=== PATIENT | male | born 1950 | race Caucasian/White ===

== ENCOUNTER 2019-03-19 10:30 | Outpatient (RCR) | payer MEDICARE, MEDICAID, SELFPAY | END 2019-03-30 00:01 | LOC: WOUND 10:30 | PROVIDERS: Family Provider Internal Medicine; Visit Provider Nurse Practitioner Family | DX: L89.623 Pressure ulcer of left heel, stage 3 (principal) ==

== ENCOUNTER 2019-04-03 20:32 | Emergency (ER) | payer MEDICARE, MEDICAID, SELFPAY | END 2019-04-04 00:30 | disposition admitted as inpatient to this hospital (09) | LOC: ER 06-23 13:15 | PROVIDERS: Emergency Provider Family Medicine; PCP Family Medicine | DX: T49.6X1A Poisoning by otorhinolaryngological drugs and preparations, accidental (unintentional), initial encounter (principal); Y92.129 Unspecified place in nursing home as the place of occurrence of the external cause; R41.82 Altered mental status, unspecified; F17.200 Nicotine dependence, unspecified, uncomplicated; I10 Essential (primary) hypertension; F03.90 Unspecified dementia, unspecified severity, without behavioral disturbance, psychotic disturbance, mood disturbance, and anxiety; E66.01 Morbid (severe) obesity due to excess calories; K21.9 Gastro-esophageal reflux disease without esophagitis; E03.9 Hypothyroidism, unspecified; F32.9 Major depressive disorder, single episode, unspecified | CPT/HCPCS: 36600; 71045; 80053; 80307; 82803; 83605; 83930; 84443; 85025; 85610; 96365; 96366; 96375; 99281; 99291; J2704; J3010; J7030 ==

== ENCOUNTER 2019-04-03 20:32 | Inpatient (IN) | payer MEDICAID, SELFPAY ==
--- NOTE | 2019-04-03 20:38 | ED_ITS ---
Entered by Madai Bowen, acting as scribe for Victor Hugo Hernandez DO HPI - Altered Mental Status General: Chief Complaint: Altered Mental Status Stated Complaint: ALTERED LOC/ DRANK A BOTTLE OF MOUTH WASH Time Seen by Provider: 04/03/19 20:34 Source: EMS Mode of arrival: EMS Limitations: altered mental status History of Present Illness: HPI narrative: 69 yo Male presents to ED with complaint of altered mental status. Per EMS, patient [facility] a bottle [facility] mouth wash at the [facility]. MD complaint: altered mental status and intoxication Onset (ago): unknown Context: alcohol abuse Associated symptoms: Reports no associated symptoms Review of Systems General: Reports: 10 or more systems reviewed and unremarkable except in HPI and below Neuro: Reports: confusion and slurred speech PFSH ED PFSH: Statuses (acute, chronic, etc) shown below reflect problem list status as previously entered and may not be historically accurate Social History Smoking and tobacco status: light tobacco smoker Physical Exam Const: COMMON NORMALS: no apparent distress, average body habitus, oriented x3, no limitations, healthy appearing, alert and well nourished HENMT: COMMON NORMALS: normocephalic, head/scalp atraumatic, hearing grossly normal bilaterally, external ears normal, EAC's normal, TM's normal bilaterally, external nose normal, nasal mucous membranes and turbinates normal, moist oral mucous membranes, oropharynx normal, dentition normal and gingiva normal HEAD & SCALP: normocephalic and atraumatic NOSE: external nose normal and nasal mucous membranes and turbinates normal EXTERNAL EAR: Yes external ears normal EXTERNAL AUDITORY CANAL: EAC's normal TYMPANIC MEMBRANE: TM's normal bilaterally Eye: COMMON NORMALS: PERRL, EOMs intact bilaterally, conjunctivae normal, no scleral icterus, no papilledema, normal visual salazar by confrontation and fundi normal bilaterally CONJUNCTIVA: Yes conjunctivae normal PUPIL: Yes PERRL DIRECT OPHTHALMOSCOPY: Yes no papilledema and Yes fundi normal bilaterally Neck/C-Spine: COMMON NORMALS: full ROM, no lymphadenopathy, supple, no meningeal signs, no JVD, thyroid normal and no carotid bruits THYROID: thyroid normal Chest: COMMONS NORMALS: inspection of chest normal and palpation of chest normal Resp: COMMON NORMALS: normal respiratory effort, no retractions, no use of accessory muscles, clear to auscultation bilaterally and percussion normal AUSCULTATION: clear to auscultation bilaterally PERCUSSION: percussion normal Cardio: COMMON NORMALS: no JVD, regular rate, regular rhythm, S1 normal heart sound, S2 normal heart sound, no gallops, no clicks, no murmurs, no rub and peripheral pulses 2+ throughout RATE: regular rate RHYTHM: regular rhythm HEART SOUNDS: S1 normal and S2 normal PERIPHERAL PULSES: pulses 2+ throughout GI: COMMON NORMALS: normal to inspection, nondistended, normoactive bowel sounds, soft to palpation, non-tender, no hepatosplenomegaly, no masses and no bruits PALPATION: Yes soft and Yes no hepatosplenomegaly : COMMON NORMALS: Yes no CVA tenderness BLADDER/KIDNEY EXAM: Yes no CVA tenderness Back/Pelvis: COMMON NORMALS: no CVA tenderness, thoracic and lumbar spine normal to inspection, no thoracic nor lumbar tenderness, thoraco-lumbar ROM normal and straight leg raise negative bilaterally Extremity: COMMON NORMALS: normal to inspection, full ROM, normal capillary refill, no joint enlargement, no clubbing, cyanosis or edema, no calf tenderness and no pedal edema Neuro: COMMON NORMALS: oriented x3 SENSORIUM/ORIENTATION: Yes alert MENINGEAL SIGNS: Yes no meningeal signs Skin: COMMON NORMALS: no rashes or lesions noted, no wounds, skin turgor normal, no jaundice, no petechiae and no mottling GENERAL SKIN EXAM: no rashes or lesions noted and turgor normal Course Vital Signs: Vital signs: Vital Signs Temperature 97.6 F 04/03/19 20:47 Pulse Rate 72 04/03/19 20:47 Respiratory Rate 15 04/03/19 21:30 Blood Pressure 114/64 04/03/19 20:47 Pulse Oximetry 90 04/03/19 20:47 Coding Level of Care Code ED Industrial Relations Worker for Chg Fwd Exam Problem Focused The documentation recorded by the Andrés edgar Carmen, accurately reflects the service I personally performed and the decisions made by , Victor Hugo Hernandez, Apr 03, 2019 20:32
[2019-04-03 20:40] VITALS: BMI 36.3
[2019-04-03 20:47] VITALS: BP 114/64; PULSE 72; RESP 18; TEMP 36.4; O2SAT 90
--- NOTE | 2019-04-03 21:24 | XRR_ITS ---
PROCEDURE INFORMATION: Exam: XR Chest, 1 View Exam date and time: 04/03/2019 9:42 PM Age: 69 years old Clinical indication: Device placement; Ett placement (vent status); Additional info: Post intubation TECHNIQUE: Imaging protocol: XR of the chest Views: 1 view. COMPARISON: No relevant prior studies available. FINDINGS: Tubes, catheters and devices: The endotracheal tube is not visible. The nasogastric tube is positioned in the stomach, well beyond the diaphragmatic hiatus. The tip is not imaged. Lungs: Mild nonspecific opacity at the left lung base most likely represent subsegmental atelectasis. There is a 7 mm nodule projecting over the right lung base. Pleural space: There is no pleural effusion or pneumothorax. Heart/Mediastinum: Cardiomediastinal contours are unremarkable. Bones/joints: Bones are unremarkable. XR/XR chest 1V portable [id number] IMPRESSION: 1. The endotracheal tube is not visible. Consider repeat chest radiograph. 2. NG tube is in the stomach. The tip is not imaged. 3. Right lower lobe 7 mm pulmonary nodule. Recommend nonemergent chest CT followup. 4. Probable atelectasis in the left lung base.
[2019-04-03 21:30] VITALS: RESP 15
[2019-04-03] MEDS: sodium chloride 0.9% 1,000 ML 999 ML IV (21:30)
[2019-04-03] MEDS: propofol 1,000 MG/100 ML INJ 4 MG IV (21:35)
[2019-04-03] MEDS: fentaNYL 50 mcg/mL INJ 2mL 200 MCG XX (21:55)
[2019-04-03 22:08] LABS: ABG PCO2 64.3 mmHg (35-45); ABG PH Result 7.25 (7.35-7.45)
[2019-04-03 22:09] LABS: Base Excess ABG -0.5 mmol/L (-2.0-2.0); Blood Gas Allen Test P; HCO3 ABG 28.4 mmol/L (22-26); Oxygen Device VENT
[2019-04-03 22:17] LABS: Basophils # 0.1 10^3/uL (0.0-0.1); Basophils % 1.3 %; Eosinophils # 0.1 10^3/uL (0.0-0.8); Eosinophils % 2.1 %; Hematocrit 45.8 % (42.0-52.0); Hemoglobin 14.9 g/dL (11.7-16.6); Lymphocytes # 2.1 10^3/uL (0.8-4.8); Lymphocytes % 39.8 %; Mean Corpuscular HGB Conc 32.5 g/dL (30.0-36.0); Mean Corpuscular Hemoglobin 31.9 pg (28.0-34.0); Mean Corpuscular Volume 98.1 fL (80-94); Mean Platelet Volume 10.9 fL (7.4-10.4); Monocytes # 0.4 10^3/uL (0.2-0.9); Monocytes % 8.2 %; Neutrophils # 2.5 10^3/uL (1.8-7.7); Neutrophils % 46.7 %; Nucleated Red Blood Cells % 0 %; Platelet Count 262 10^3/cmm (130-400); Red Blood Count 4.67 10^6/uL (4.1-5.3); White Blood Count 5.4 10^3/uL (4.0-10.0)
[2019-04-03 22:28] LABS: INR 1.03 (0.8-1.2)
[2019-04-03 22:46] VITALS: PULSE 80; RESP 15; TEMP 36.6; O2SAT 95
[2019-04-03 22:49] LABS: Alanine Aminotransferase 39 U/L (0-41); Albumin Level 4.2 g/dL (3.5-5.2); Alcohol Level 150 mg/dL (0-10); Alkaline Phosphatase 107 IU/L (40-130); Anion Gap 17.2 (5-19); Aspartate Amino Transferase 31 U/L (0-40); Blood Urea Nitrogen 15 mg/dL (8-23); Calcium 8.6 mg/Dl (8.8-10.2); Carbon Dioxide 26 mmol/L (22-29); Chloride 94 mmol/L (98-107); Globulin 2.5 g/dL (1.3-4.6); Glucose 98 mg/dL (74-106); Potassium 4.2 mmol/L (3.5-5.1); Sodium 133 mmol/L (136-145); Thyroid Stimulating Hormone 1.19 uIU/mL (0.27-4.20); Total Bilirubin 0.3 mg/dL (0.15-1.2); Total Protein 6.7 g/dL (6.6-8.7)
[2019-04-03 22:55] LABS: Acetaminophen < 5.0 ug/mL (10-30); Salicylate < 0.3 mg/dL (3-10)
[2019-04-04] VITALS (34 sets, daily range): BP systolic 89–162; BP diastolic 56–86; PULSE 63–110; RESP 15–23; TEMP 36.3–37.7; O2SAT 40–98
--- NOTE | 2019-04-04 00:38 | P.HP_ITS ---
Providers/Chief Complaint Admitting Physician: Hemal Mcclelland MD Primary Care Provider: Deloris Echavarria DO Chief Complaint: ALTERED LOC/ DRANK A BOTTLE OF MOUTH WASH History of Present Illness Zain Resendiz is a 69 year old male who is a resident of a half-way from [facility], was brought in by EMS for severe agitation and altered mental status. Patient was intubated by ER physician because of his inability to protect his airways, I was told that he was very agitated, was not making any sense, was intubated by Dr. Khan on first attempt. I called his half-way who told me that for last 2 to 3 days he was refusing nursing care, he does not ambulate on his own he needs a wheelchair or a Kamron lift, he has been very combative for last few days, he has been cursing nurses and the staff there. Today when he was sent back to his room 3 bottles of Listerine were found in his room and he was very confused at that time. He has a stage III left heel ulcer and a healed coccygeal ulcer, he has been seen by wound care nurses but recently was refusing wound care as well. Blood gas was obtained on BiPAP which showed respiratory acidosis, tidal volume was increased and PEEP was decreased to 5, FiO2 50% on CMV ventilator, when I evaluated him he was opening his eyes was moving his extremities, soft wrist restraints were used, blood pressure 128/70, propofol is was running at the bedside at 10 Santos catheter was draining concentrated urine Respiratory therapist was able to suction a lot of whitish expectorant Review of Systems General: Reports: ROS unobtainable due to endotracheal tube Medications/Allergies Allergies Allergy/AdvReac Type Severity Reaction Status Date / Time No Allergy Information Allergy Unknown Unknown Unverified 04/03/19 22:41 Available PFSH Acute PFSH: Statuses (acute, chronic, etc) shown below reflect problem list status as previously entered and may not be historically accurate Medical History (Updated 04/04/19 @ 01:02 by Hemal Mcclelland MD) BPH (benign prostatic hyperplasia) (Acute) COPD (chronic obstructive pulmonary disease) (Acute) GERD (gastroesophageal reflux disease) (Acute) Hospital-acquired pneumonia (Acute) Hypertension (Acute) Hyponatremia (Acute) Hypothyroidism (Acute) Morbid obesity (Acute) MRSA (methicillin resistant staph aureus) culture positive (Acute) Neuropathy (Acute) Pressure ulcer with abrasion, blister, partial thickness skin loss involving epidermis and/or dermis (Acute) Radiculopathy (Acute) Spastic paralysis (Acute) Spinal stenosis (Acute) Surgical History (Updated 04/04/19 @ 01:00 by Hemal Mcclelland MD) Surgical history unknown (Acute) Family History (Updated 04/04/19 @ 00:59 by Hemal Mcclelland MD) Other Diabetes Hypertension Social History (Updated 04/04/19 @ 00:59 by Hemal Mcclelland MD) Smoking and tobacco status: light tobacco smoker Alcohol intake: former Substance/Drug Use: never Vitals/I&O/Wt Last Vital Signs Temp 97.6 F 04/03/19 20:47 Pulse 72 04/03/19 20:47 Resp 15 04/03/19 21:30 BP 114/64 04/03/19 20:47 Pulse Ox 90 04/03/19 20:47 Weight last 48 hrs Weight 131.995 kg Physical Exam Narrative: EXAM NARRATIVE: Patient has been intubated with CMV settings FiO2 50% PEEP 5, tidal volume 550, Minute ventilation 8-9 Propofol running at the bedside at 10 Patient is intubated and sedated, Morbidly obese male ET tube size 8 A lot of whitish expectorant has been suctioned Assisted breath sounds bilaterally Abdomen with obesity, soft, distended, bowel sounds present Neurological status not able to be assessed Lower extremity has venous stasis dermatitis with stage II-III left heel ulcer Coccygeal healing ulcer on admission Santos catheter draining concentrated urine Multiple skin purpura petechiae Multiple bruises at his forearm No active signs of heart failure lower extremity pitting edema, Onychomycosis A&P Assessment and plan (1) Respiratory failure: Status: Acute Code(s): J96.90 - Respiratory failure, unspecified, unspecified whether with hypoxia or hypercapnia (2) Morbid obesity: Status: Acute Code(s): E66.01 - Morbid (severe) obesity due to excess calories (3) Adverse effect of mouthwash: Status: Acute Code(s): T49.6X5A - Adverse effect of otorhinolaryngological drugs and preparations, initial encounter (4) Alcoholic intoxication: Status: Acute Qualifiers: Complication of substance-induced condition: with delirium Qualified Code(s): F10.921 - Alcohol use, unspecified with intoxication delirium Code(s): F10.929 - Alcohol use, unspecified with intoxication, unspecified (5) Altered mental status: Status: Acute Qualifiers: Altered mental status type: stupor Qualified Code(s): R40.1 - Stupor Code(s): R41.82 - Altered mental status, unspecified Additional A&P Information Additional A&P Information: Respiratory failure secondary to inability to protect airways because of alcohol intoxication Patient has used Listerine 3 bottles, ethanol level 154 Would use propofol for sedation, he was waking up on propofol running at 10, he was given additional dose of propofol 40, Will get another chest x-ray to locate ETT position and NG Will get another blood gas He might be ready for a weaning trial in the morning Alcohol intoxication Calculated osmolarity is 308 I am waiting on measured serum osmolarity to calculate osmolar gap Patient is not acidotic, no elevation of transaminases, lactic acid normal kidney function is normal I highly doubt he will need hemodialysis on urgent basis for now Hypothyroid: Continue levothyroxine 150 mcg Sleep apnea with concomitant use of opioids and analgesics This might aggravate his respiratory distress in the future and put him at risk of respiratory failure and reintubation Pressure induced injury of left heel and coccygeal area Patient will need nursing wound care Stage III heel ulcer and well-healed coccygeal ulcer Continue Santos catheter for now BPH: Continue tamsulosin GERD: Continue antacids Spasticity: Patient has been on baclofen Gabapentin for neuropathy Depression/anxiety: I would continue his escitalopram and will increase the dose to 40 mg He is also on Depakote Full code Attestations Medical Necessity Statement*: Anticipating his stay to cross more than 2 midnights currently needs ICU for hypercarbic respiratory failure secondary to alcohol intoxication Time Spent in Patient Care: (>than 50% of time spent in counselling and/or direct pt care on unit) . 60 Coding Level of Care Code Acute Aoc Director Combat Operations Officer for Sudarshan Varela Diagnoses Respiratory failure J96.90 Morbid obesity E66.01 Adverse effect of mouthwash T49.6X5A Alcoholic intoxication F10.921 Complication of substance-induced condition: with delirium Altered mental status R40.1 Altered mental status type: stupor
--- NOTE | 2019-04-04 00:54 | PC.NURSE ---
Pt came to ER due to AMS which occured while in NH. Pt was speaking, but not making sense when asked questions. Pt combative at times when trying to place IV.
--- NOTE | 2019-04-04 00:57 | ECG_ITS ---
Measurements Intervals Yoder Rate: 99 P: RI: 224 QRS: 58 QRSD: 73 T: 56 QT: 339 QTc: 436 SINUS RHYTHM WITH FIRST DEGREE AV BLOCK MODERATE ST DEPRESSION [0.05+ mV ST DEPRESSION] No previous ECG available for comparison Electronically Signed On 04-04-2019 11:13:11 USER INTERFACE DESIGNER by Sara Mendoza M.D. [email or web address]
--- NOTE | 2019-04-04 00:57 | XRR_ITS ---
PROCEDURE INFORMATION: Exam: XR Chest, 1 View Exam date and time: 04/04/2019 1:24 AM Age: 69 years old Clinical indication: Dyspnea; Additional info: Et and ng tube TECHNIQUE: Imaging protocol: XR of the chest Views: 1 view. COMPARISON: CR XR chest 1V portable [id number] 04/03/2019 9:27 PM FINDINGS: Tubes, catheters and devices: The endotracheal tube is appropriately positioned in the distal thoracic trachea with the tip above the isabela. The nasogastric tube is positioned in the stomach, well beyond the diaphragmatic hiatus. The tip is not imaged. Lungs: There is no consolidation. Pleural space: Unremarkable. No pleural effusion. No pneumothorax. Heart/Mediastinum: Cardiomediastinal contours are unremarkable. Bones/joints: Bones are unremarkable. XR/XR chest 1V portable [id number] IMPRESSION: 1. Satisfactory endotracheal tube position. 2. NG tube is in the stomach. The tip is not imaged.
[2019-04-04] MEDS: enoxaparin 40 mg/0.4 mL Syringe SUBCUT (01:57)
[2019-04-04] MEDS: atorvastatin 40 mg Tablet PO (01:57)
[2019-04-04 04:49] LABS: ABG PCO2 54.7 mmHg (35-45); ABG PH Result 7.31 (7.35-7.45); Arterial Blood Gas Hematocrit 46.9 % (42-52); Base Excess ABG -0.1 mmol/L (-2.0-2.0); Blood Gas Allen Test Pos; Blood Gas Sample Site Radial, right; Blood Gas Sample Type Arterial; Blood Gas Tidal Volume 0.55; HCO3 ABG 27.4 mmol/L (22-26)
[2019-04-04] MEDS: propofol 1,000 MG/100 ML INJ 11.9 MG IV ×2 (05:20→19:45)
[2019-04-04 05:27] LABS: Basophils # 0.1 10^3/uL (0.0-0.1); Eosinophils # 0.1 10^3/uL (0.0-0.8); Eosinophils % 0.8 %; Hemoglobin 14.8 g/dL (11.7-16.6); Lymphocytes # 1.7 10^3/uL (0.8-4.8); Lymphocytes % 21.6 %; Mean Corpuscular HGB Conc 32.2 g/dL (30.0-36.0); Mean Corpuscular Hemoglobin 31.2 pg (28.0-34.0); Mean Platelet Volume 11.1 fL (7.4-10.4); Monocytes # 0.9 10^3/uL (0.2-0.9); Monocytes % 10.8 %; Neutrophils # 5.2 10^3/uL (1.8-7.7); Neutrophils % 64.7 %; Nucleated Red Blood Cells % 0 %; Platelet Count 274 10^3/cmm (130-400); Red Blood Count 4.74 10^6/uL (4.1-5.3); Red Cell Distribution Width 14.1 % (12.1-15.1)
[2019-04-04 05:30] LABS: Lactic Sepsis W/Reflex 2.8 mmol/L (0.5-2.2)
[2019-04-04 05:40] LABS: Alanine Aminotransferase 35 U/L (0-41); Albumin Level 3.8 g/dL (3.5-5.2); Alkaline Phosphatase 120 IU/L (40-130); Anion Gap 17.5 (5-19); Aspartate Amino Transferase 31 U/L (0-40); Blood Urea Nitrogen 21 mg/dL (8-23); Calcium 9.3 mg/Dl (8.8-10.2); Carbon Dioxide 27 mmol/L (22-29); Chloride 95 mmol/L (98-107); Globulin 3.5 g/dL (1.3-4.6); Glomerular Filtration Rate 112.1 mL/min (90-130); Glucose 85 mg/dL (74-106); Potassium 4.5 mmol/L (3.5-5.1); Sodium 135 mmol/L (136-145); Total Bilirubin 0.2 mg/dL (0.15-1.2); Total Protein 7.3 g/dL (6.6-8.7)
[2019-04-04] MEDS: sodium chloride 0.9% 1,000 ML 75 ML IV ×2 (06:45→19:46)
[2019-04-04 07:02] LABS: Reflex Lactate Order Y
[2019-04-04] MEDS: ipratropium-albuterol 3 mL Neb INHALATION ×3 (07:26→19:40)
--- NOTE | 2019-04-04 07:31 | PC.NURSE ---
lung with increased section large amts whitish sputm noted decreased breath sound at this time
[2019-04-04 08:35] LABS: Lactate (Lactic Acid level) 1.5 mmol/L (0.5-2.2)
[2019-04-04] MEDS: levothyroxine 150 mcg Tablet PO (08:41)
[2019-04-04] MEDS: aspirin 81 mg EC Tablet PO (08:41)
[2019-04-04] MEDS: sennosides-docusate Tablet 1 TAB PO ×2 (08:41→17:12)
[2019-04-04] MEDS: baclofen 10 mg Tablet PO ×2 (08:41→17:12)
[2019-04-04] MEDS: doxazosin 4 mg Tablet 8 MG PO (08:51)
--- NOTE | 2019-04-04 10:10 | CTR_ITS ---
PROCEDURE INFORMATION: Exam: CT Cervical Spine Without Contrast Exam date and time: 04/04/2019 10:40 AM Age: 69 years old Clinical indication: Injury or trauma; Initial encounter; Blunt trauma; Additional info: R/O fracture TECHNIQUE: Imaging protocol: Computed tomography images of the cervical spine without contrast. Total DLP: 933.59 mGy-cm Radiation optimization: All CT scans at this facility use at least one of these dose optimization techniques: automated exposure control; mA and/or kV adjustment per patient size (includes targeted exams where dose is matched to clinical indication); or iterative reconstruction. COMPARISON: No relevant prior studies available. FINDINGS: Tubes, catheters and devices: Endotracheal and orogastric tubes. Vertebrae: No acute bony injury or malalignment in the cervical spine. Exaggerated cervical lordosis. Discs/Spinal canal/Neural foramina: Multilevel degenerative change. Note that assessment of disc, spinal cord, and nerve root pathology is limited in the absence of intrathecal contrast. Soft tissues: Unremarkable. Sinuses: Sphenoid and maxillary sinus fluid. Nasopharynx: Fluid in the nasal cavities and nasopharynx. Lungs: Unremarkable apices as visualized. Vasculature: Vascular calcification. CT/CT cervical spin wo con* [id number] IMPRESSION: No acute bony injury or malalignment in the cervical spine. Radiation Dose CTDIVOL = (mGy): DLP = 933.59 (mGy-cm)
--- NOTE | 2019-04-04 10:10 | CTR_ITS ---
PROCEDURE INFORMATION: Exam: CT Head Without Contrast Exam date and time: 04/04/2019 10:40 AM Age: 69 years old Clinical indication: Altered mental status/memory loss; Additional info: R/O CVA TECHNIQUE: Imaging protocol: Computed tomography of the head without contrast. Total DLP: 1139.49 mGy-cm Radiation optimization: All CT scans at this facility use at least one of these dose optimization techniques: automated exposure control; mA and/or kV adjustment per patient size (includes targeted exams where dose is matched to clinical indication); or iterative reconstruction. COMPARISON: No relevant prior studies available. FINDINGS: Tubes, catheters and devices: Orogastric and endotracheal tubes. Brain: Symmetric prominence of cortical sulci. No acute post traumatic brain injury. Minimal small vessel ischemic change. Ventricles: Normal configuration of the ventricles. Bones/joints: No acute calvarial injury. Bilateral anterior subluxation of the temporomandibular joints and horizontally oriented linear radiolucencies in the mandibular condyles, believed to be artifactual. CT of the temporomandibular joints performed for improved characterization if clinically indicated. Sinuses: Bilateral paranasal sinus fluid. Mastoid air cells: No mastoid effusion. Soft tissues: No significant scalp hematoma. 7 mm cutaneous nodule right frontal region. CT/CT head wo con* [id number] IMPRESSION: 1. No acute post traumatic brain injury. 2. Bilateral anterior subluxation of the temporomandibular joints and horizontally oriented linear radiolucencies in the mandibular condyles, believed to be artifactual. CT of the temporomandibular joints performed for improved characterization if clinically indicated. Radiation Dose CTDIVOL = (mGy): DLP = 1139.49 (mGy-cm)
--- NOTE | 2019-04-04 10:28 | PC.NURSE ---
flu shot 01/08/2019
[2019-04-04] MEDS: propofol 1,000 MG/100 ML INJ 15.8 MG IV ×2 (10:42→14:41)
--- NOTE | 2019-04-04 10:47 | PM.PN ---
Subjective Subjective: Interval history: Overnight H&P labs reviewed. ETT with thick copious secretions. Remains intubated and sedated in the ICU. Poison control contacted this morning. Medications: Reviewed: Yes Vitals/I&O/Wt Last Vital Signs Temp 98.0 F 04/04/19 07:14 Pulse 89 04/04/19 10:00 Resp 16 04/04/19 10:00 BP 106/66 04/04/19 10:00 Pulse Ox 93 04/04/19 10:00 04/03/19 04/04/19 04/04/19 22:59 06:59 14:59 Intake Total 37.868 / 37.868 77.947 / 77.947 Output Total 550 / 550 Balance -512.132 / -512.132 77.947 / 77.947 Weight last 48 hrs Weight 131.995 kg Physical Exam Narrative: EXAM NARRATIVE: General intubated sedated HEENT coarse ET tube secretions CVS S1-S2 is normal Respiratory system bilateral coarse breath sounds Abdomen soft nondistended nontender. Urinary Catheter Management^: Santos: Cath Placed During This Visit: no A&P Assessment and plan (1) Respiratory failure: Status: Acute Code(s): J96.90 - Respiratory failure, unspecified, unspecified whether with hypoxia or hypercapnia (2) Morbid obesity: Status: Acute Code(s): E66.01 - Morbid (severe) obesity due to excess calories (3) Adverse effect of mouthwash: Status: Acute Code(s): T49.6X5A - Adverse effect of otorhinolaryngological drugs and preparations, initial encounter (4) Alcoholic intoxication: Status: Acute Qualifiers: Complication of substance-induced condition: with delirium Qualified Code(s): F10.921 - Alcohol use, unspecified with intoxication delirium Code(s): F10.929 - Alcohol use, unspecified with intoxication, unspecified (5) Altered mental status: Status: Acute Qualifiers: Altered mental status type: stupor Qualified Code(s): R40.1 - Stupor Code(s): R41.82 - Altered mental status, unspecified Additional A&P Information Additional A&P Information: Respiratory failure secondary to inability to protect airways because of alcohol intoxication. Thick copious secretions may be resultant because of aspiration. Patient has used Listerine 3 bottles, ethanol level 154 Continue propofol. Add fentanyl gtt. for pain control Weaning trial tomorrow morning Alcohol intoxication Discussed with poison control. Salicylate level is negative. We will additionally check acetaminophen levels. Hypothyroid: Continue levothyroxine 150 mcg Sleep apnea with concomitant use of opioids and analgesics This might aggravate his respiratory distress in the future and put him at risk of respiratory failure and reintubation Pressure induced injury of left heel and coccygeal area Continue dressings BPH: Continue Flomax GERD: Continue antacids Spasticity: Patient has been on baclofen Gabapentin for neuropathy Full code Attestations Medical Necessity Statement*: Acute alcohol intoxication with respiratory failure requiring intubation. Coding Level of Care Code Acute Making Department Preparer for [facility] Diagnoses Respiratory failure J96.90 Morbid obesity E66.01 Adverse effect of mouthwash T49.6X5A Alcoholic intoxication F10.921 Complication of substance-induced condition: with delirium Altered mental status R40.1 Altered mental status type: stupor
--- NOTE | 2019-04-04 10:53 | XRR_ITS ---
PROCEDURE INFORMATION: Exam: XR Chest, 1 View Exam date and time: 04/04/2019 11:23 AM Age: 69 years old Clinical indication: Shortness of breath; Additional info: Aspiration TECHNIQUE: Imaging protocol: XR of the chest Views: 1 view. COMPARISON: CR XR chest 1V portable [id number] 04/04/2019 1:13 AM FINDINGS: Tubes, catheters and devices: Endotracheal tube terminates 2.5 cm above the isabela. Feeding tube courses into the proximal stomach the distal tip not visualized. Lungs: COPD, interstitial prominence, chronic granulomatous disease. Pleural space: Incomplete visualization of the right costophrenic angle. No significant pleural effusion. Heart/Mediastinum: No cardiomegaly. Bones/joints: Osteopenia and degenerative change. Suspected resection of incompletely visualized distal right clavicle. XR/XR chest 1V [id number] IMPRESSION: 1. Endotracheal tube terminates 2.5 cm above the isabela. Feeding tube courses into the proximal stomach the distal tip not visualized. 2. COPD, interstitial prominence, chronic granulomatous disease.
--- NOTE | 2019-04-04 11:39 | PC.NURSE ---
to ct for head and kneck back to room has increased section noted weeping edema left arm large amt pad changed
--- NOTE | 2019-04-04 14:31 | PC.CHAP ---
The patient is on a vent so the Fixer Supervisor prayed outside o the room. 3 min.
[2019-04-04 16:25] LABS: Basophils # 0.1 10^3/uL (0.0-0.1); Basophils % 0.6 %; Eosinophils % 0.3 %; Hematocrit 45.3 % (42.0-52.0); Hemoglobin 13.9 g/dL (11.7-16.6); Lymphocytes # 1.7 10^3/uL (0.8-4.8); Lymphocytes % 17.5 %; Mean Corpuscular HGB Conc 30.7 g/dL (30.0-36.0); Mean Corpuscular Hemoglobin 31.8 pg (28.0-34.0); Mean Corpuscular Volume 103.7 fL (80-94); Mean Platelet Volume 11.1 fL (7.4-10.4); Monocytes # 1.3 10^3/uL (0.2-0.9); Monocytes % 13.1 %; Neutrophils # 6.7 10^3/uL (1.8-7.7); Neutrophils % 68.1 %; Nucleated Red Blood Cells % 0 %; Platelet Count 228 10^3/cmm (130-400); Red Blood Count 4.37 10^6/uL (4.1-5.3); Red Cell Distribution Width 14.4 % (12.1-15.1); White Blood Count 9.8 10^3/uL (4.0-10.0)
--- NOTE | 2019-04-04 18:18 | PC.NURSE ---
ng intact from admission remains
--- NOTE | 2019-04-04 19:59 | PC.NURSE ---
Left arm swollen and weeping, pad changed. Multiple blisters present on underside of arm. IV discontinued. Arm placed on pillow and absorbent todd.
[2019-04-04] MEDS: finasteride 5 mg Tablet PO (21:54)
[2019-04-04] MEDS: divalproex ER 500 mg Tablet (24H) PO (21:56)
--- NOTE | 2019-04-04 22:58 | PC.NURSE ---
Update given to poison control. No change of care needed at this time.
[2019-04-05] VITALS (24 sets, daily range): BP systolic 87–155; BP diastolic 46–90; PULSE 57–771; RESP 16–21; TEMP 36.8–37.3; O2SAT 59–100
[2019-04-05] MEDS: enoxaparin 40 mg/0.4 mL Syringe SUBCUT ×2 (00:20→23:58)
[2019-04-05] MEDS: ipratropium-albuterol 3 mL Neb INHALATION ×4 (01:44→20:05)
[2019-04-05] MEDS: propofol 1,000 MG/100 ML INJ 31.7 MG IV ×9 (02:42→23:03)
[2019-04-05 05:16] LABS: ABG PCO2 47.4 mmHg (35-45); ABG PH Result 7.41 (7.35-7.45); Base Excess ABG 4.2 mmol/L (-2.0-2.0); Blood Gas Allen Test Pos; Blood Gas Sample Site Radial, right; Blood Gas Sample Type Arterial; Blood Gas Tidal Volume 0.55; HCO3 ABG 29.8 mmol/L (22-26)
[2019-04-05 05:35] LABS: Basophils # 0.1 10^3/uL (0.0-0.1); Basophils % 0.6 %; Eosinophils % 0.2 %; Hematocrit 39.1 % (42.0-52.0); Hemoglobin 12.5 g/dL (11.7-16.6); Lymphocytes # 1.1 10^3/uL (0.8-4.8); Lymphocytes % 13.5 %; Mean Corpuscular Hemoglobin 31.8 pg (28.0-34.0); Mean Corpuscular Volume 99.5 fL (80-94); Mean Platelet Volume 11.3 fL (7.4-10.4); Monocytes % 11.8 %; Neutrophils # 6.2 10^3/uL (1.8-7.7); Neutrophils % 73.4 %; Nucleated Red Blood Cells % 0 %; Platelet Count 224 10^3/cmm (130-400); Red Blood Count 3.93 10^6/uL (4.1-5.3); Red Cell Distribution Width 14.4 % (12.1-15.1); White Blood Count 8.4 10^3/uL (4.0-10.0)
[2019-04-05 06:03] LABS: Alanine Aminotransferase 20 U/L (0-41); Albumin Level 3.2 g/dL (3.5-5.2); Alkaline Phosphatase 99 IU/L (40-130); Anion Gap 13.7 (5-19); Aspartate Amino Transferase 16 U/L (0-40); Blood Urea Nitrogen 20 mg/dL (8-23); Calcium 9.2 mg/Dl (8.8-10.2); Carbon Dioxide 28 mmol/L (22-29); Chloride 98 mmol/L (98-107); Glucose 107 mg/dL (74-106); Potassium 3.7 mmol/L (3.5-5.1); Sodium 136 mmol/L (136-145); Total Bilirubin 0.3 mg/dL (0.15-1.2); Total Protein 6.2 g/dL (6.6-8.7)
[2019-04-05] MEDS: sennosides-docusate Tablet 1 TAB PO ×2 (09:05→18:58)
[2019-04-05] MEDS: aspirin 81 mg EC Tablet PO (09:05)
[2019-04-05] MEDS: buPROPion XL (24 HR) 300 mg Tablet PO (09:05)
[2019-04-05] MEDS: baclofen 10 mg Tablet PO ×2 (09:05→18:58)
[2019-04-05] MEDS: levothyroxine 150 mcg Tablet PO (09:05)
[2019-04-05] MEDS: doxazosin 4 mg Tablet 8 MG PO (09:06)
[2019-04-05] MEDS: sodium chloride 0.9% 1,000 ML 75 ML IV ×2 (09:07→19:09)
--- NOTE | 2019-04-05 09:25 | P.PN_ITS ---
Subjective Subjective: Interval history: Continues to have thick copious secretions. Also noted to have blood-tinged aspirate from his NGT. Sedated with propofol also on fentanyl Medications: Reviewed: Yes Vitals/I&O/Wt Last Vital Signs Temp 99.1 F 04/05/19 04:00 Pulse 771 H 04/05/19 07:25 Resp 16 04/05/19 09:04 BP 105/54 04/05/19 06:00 Pulse Ox 99 04/05/19 07:25 04/04/19 04/05/19 04/05/19 22:59 06:59 14:59 Intake Total 1056.303 / 1198.392 212.463 / 1628.180 6368 / 1100 Output Total 300 / 300 Balance 1056.303 / 1198.392 -87.537 / 6000.346 6133 / 1100 Weight last 48 hrs Weight 131.995 kg Physical Exam Narrative: EXAM NARRATIVE: General intubated sedated HEENT coarse ET tube secretions CVS S1-S2 is normal Respiratory system bilateral coarse breath sounds Abdomen soft nondistended nontender. Urinary Catheter Management^: Santos: Cath Placed During This Visit: no A&P Assessment and plan (1) Respiratory failure: Status: Acute Code(s): J96.90 - Respiratory failure, unspecified, unspecified whether with hypoxia or hypercapnia (2) Morbid obesity: Status: Acute Code(s): E66.01 - Morbid (severe) obesity due to excess calories (3) Adverse effect of mouthwash: Status: Acute Code(s): T49.6X5A - Adverse effect of otorhinolaryngological drugs and preparations, initial encounter (4) Alcoholic intoxication: Status: Acute Qualifiers: Complication of substance-induced condition: with delirium Qualified Code(s): F10.921 - Alcohol use, unspecified with intoxication delirium Code(s): F10.929 - Alcohol use, unspecified with intoxication, unspecified (5) Altered mental status: Status: Acute Qualifiers: Altered mental status type: stupor Qualified Code(s): R40.1 - Stupor Code(s): R41.82 - Altered mental status, unspecified Additional A&P Information Additional A&P Information: Respiratory failure secondary to inability to protect airways because of alcohol intoxication. Thick copious secretions may be resultant because of aspiration. Will obtain chest x-ray Patient has used Listerine 3 bottles, ethanol level 154 Continue propofol. Add fentanyl gtt. for pain control Weaning trial tomorrow morning Alcohol intoxication Discussed with poison control. Salicylate level is negative. Acetaminophen levels reviewed not in the toxic range Hypothyroid: Continue levothyroxine 150 mcg Sleep apnea with concomitant use of opioids and analgesics This might aggravate his respiratory distress in the future and put him at risk of respiratory failure and reintubation Pressure induced injury of left heel and coccygeal area Continue dressings BPH: Continue Flomax GERD: Continue antacids Spasticity: Patient has been on baclofen Gabapentin for neuropathy Full code Attestations Medical Necessity Statement*: Admitted to the ICU for alcohol intoxication and inability to protect airways. Coding Level of Care Code Acute Principal Law Clerk for [facility] Diagnoses Respiratory failure J96.90 Morbid obesity E66.01 Adverse effect of mouthwash T49.6X5A Alcoholic intoxication F10.921 Complication of substance-induced condition: with delirium Altered mental status R40.1 Altered mental status type: stupor
--- NOTE | 2019-04-05 09:59 | XR_ITS ---
WS: [id number] CHEST XRAY TECHNIQUE: Portable chest. CLINICAL INFORMATION: pneumonia, aspiration COMPARISON: FINDINGS: Endotracheal tube with tip above the isabela measuring 2.8 CM. Enteric tube with tip below the diaphra gm. Heart: Normal cardiac silhouette. Lungs: Patchy infiltrate in right middle lobe. Recommend correlation for pneumonia. Left lung is well aerated. Bones: Normal visualized bony structures. XR/XR chest 1V portable [id number] IMPRESSION: 1. Patchy infiltrate in the right middle lobe appears new from previous.Correl ation for aspiration pneumonia.
--- NOTE | 2019-04-05 12:06 | PC.CHAP ---
Pastoral Care Encounter/Spiritual Assessment Type of Contact [] Declined manager statistical programming visit [] Patient/Family/Request visit [] Outpatient visit [x] Follow-up visit [] Physician referral [] Code/Alert [] Routine visit [] Staff referral [] Actively dying [] Patient sleeping [] Family support [] [] Out of room [] Palliative care [] [] Receiving care in room [] Pre-surgical visit [] Trauma [] Long length of stay [x] ICU visit [] Other: Relational/Emotional Strength [] Patient feels connected with others/family/visitors/staff [] Distress [] Loneliness/isolation [] Abandonment Spirituality of Patient [] Person of Rhea [] Attends Anabaptism of their Rhea [] Believes in Prayer [] Reads Bible or Anabaptist materials [] There are Spiritual issues to be addressed Energy Director Interventions [x] Prayer [] Active listening [] Non-anxious presence [] Spiritual/emotional support [] Crisis/trauma care [] Spiritual counseling [] Bereavement support [] Provided bereavement packet [] Provided Bible/devotional materials [] Provided toy/stuffed animal, coloring book to patient or family member [] Completed spiritual assessment [] Provided Communion [] Anointing/[place] [] Salvation [] Other: Impact on Illness or Injury [] Angry [] Fearful [] Anxious [] Often cries [] Exhaustion [] Unable to work [] Unable to attend yazidism [] Unable to walk/stand [] Unable to read [] Unable to drive [] Unable to eat/drink [] Unable to sleep [] Unable to be with family [] Other: Summary The patient is on a ventilator so the Energy Director prayed at the foot of the bed. Time spent with patient 10 min.
--- NOTE | 2019-04-05 12:55 | PC.NURSE ---
SPOKE WITH POISON CONTROL. NO CHANGES NEEDED. WILL CALL BACK TOMORROW
[2019-04-05] MEDS: pantoprazole 40 mg SDV IVP ×2 (13:07→21:33)
[2019-04-05] MEDS: piperacillin-tazobactam 3.375 GM in sodium chloride 0.9% (plus) 50 ML IV ×2 (13:08→18:58)
[2019-04-05 15:40] LABS: Gastricult Occult Blood Positive (Negative)
[2019-04-05] MEDS: divalproex ER 500 mg Tablet (24H) PO (20:51)
[2019-04-05] MEDS: finasteride 5 mg Tablet PO (20:51)
[2019-04-06] VITALS (31 sets, daily range): BP systolic 117–156; BP diastolic 49–76; PULSE 50–79; RESP 10–21; TEMP 36.5–36.7; O2SAT 91–99
[2019-04-06] MEDS: propofol 1,000 MG/100 ML INJ 31.7 MG IV ×4 (01:15→07:33)
[2019-04-06] MEDS: ipratropium-albuterol 3 mL Neb INHALATION ×4 (01:27→20:12)
[2019-04-06] MEDS: piperacillin-tazobactam 3.375 GM in sodium chloride 0.9% (plus) 50 ML IV ×3 (01:30→17:36)
[2019-04-06 05:07] LABS: ABG PCO2 43.9 mmHg (35-45); Arterial Blood Gas Hematocrit 41.3 % (42-52); Base Excess ABG 1.7 mmol/L (-2.0-2.0); Blood Gas Allen Test Pos; Blood Gas Sample Site Radial, right; Blood Gas Sample Type Arterial; Blood Gas Tidal Volume 0.55; PO2 ABG 71.3 mmHg (80.0-100.0)
[2019-04-06] MEDS: propofol 1,000 MG/100 ML INJ 39.6 MG IV ×6 (09:50→22:06)
[2019-04-06] MEDS: doxazosin 4 mg Tablet 8 MG PO (09:50)
[2019-04-06] MEDS: aspirin 81 mg Chew Tablet PO (09:50)
[2019-04-06] MEDS: sennosides-docusate Tablet 1 TAB PO ×2 (09:50→17:36)
[2019-04-06] MEDS: levothyroxine 150 mcg Tablet PO (09:50)
[2019-04-06] MEDS: baclofen 10 mg Tablet PO ×2 (09:50→17:36)
[2019-04-06] MEDS: sodium chloride 0.9% 1,000 ML 75 ML IV ×2 (09:51→23:23)
[2019-04-06] MEDS: buPROPion XL (24 HR) 300 mg Tablet PO (09:51)
[2019-04-06] MEDS: pantoprazole 40 mg SDV IVP ×2 (09:53→23:25)
--- NOTE | 2019-04-06 10:41 | PC.SOCIAL ---
IMM Not Given Patient is currently on the ventilator. Attempted to reach patient's legal guardian, Marina Barcenas, to explain IMM to her and verify discharge plan back to [facility] when patient is ready. Left voicemail. SS to follow up.
--- NOTE | 2019-04-06 10:45 | PM.PN ---
Subjective Subjective: Interval history: Starting to wake up this morning. He is able to follow my commands to hold my fingers and move his toes. No acute events overnight. Chest x-ray performed yesterday with right middle lobe infiltrate likely as a result of aspiration. Continues to have thick copious secretions coming up from the ET tube. No melena or hematemesis noted. Medications: Reviewed: Yes Vitals/I&O/Wt Last Vital Signs Temp 97.7 F 04/06/19 08:00 Pulse 66 04/06/19 10:00 Resp 16 04/06/19 10:00 BP 125/63 04/06/19 10:00 Pulse Ox 93 04/06/19 10:00 04/05/19 04/06/19 04/06/19 22:59 06:59 14:59 Intake Total 1170.150 / 2482.882 318.035 / 2800.917 1224.230 / 1224.230 Output Total 400 / 400 500 / 900 Balance 770.150 / 2082.882 -181.965 / 8564.033 8292.230 / 1224.230 Physical Exam Narrative: EXAM NARRATIVE: General intubated sedated however opens his eyes and follow simple verbal commands to hold hands and toes. S1-S2 is normal Chest is clear to auscultation bilateral anteriorly Extremities no cyanosis or clubbing Neuro intubated sedated rest as above. Urinary Catheter Management^: Santos: Cath Placed During This Visit: no A&P Assessment and plan (1) Respiratory failure: Status: Acute Code(s): J96.90 - Respiratory failure, unspecified, unspecified whether with hypoxia or hypercapnia (2) Morbid obesity: Status: Acute Code(s): E66.01 - Morbid (severe) obesity due to excess calories (3) Alcoholic intoxication: Status: Acute Qualifiers: Complication of substance-induced condition: with delirium Qualified Code(s): F10.921 - Alcohol use, unspecified with intoxication delirium Code(s): F10.929 - Alcohol use, unspecified with intoxication, unspecified (4) Dementia: Status: Acute Qualifiers: Alzheimer's disease onset: unspecified onset Dementia behavioral disturbance: with behavioral disturbance Dementia type: Alzheimer's disease Qualified Code(s): G30.9 - Alzheimer's disease, unspecified; F02.81 - Dementia in other diseases classified elsewhere with behavioral disturbance Code(s): F03.90 - Unspecified dementia without behavioral disturbance (5) Aspiration into lower respiratory tract: Status: Acute Code(s): T17.800A - Unspecified foreign body in other parts of respiratory tract causing asphyxiation, initial encounter Additional A&P Information Additional A&P Information: For today our plan will be to wean propofol and start Precedex infusion. We will also try a spontaneous breathing trial and try to get patient weaned off the ventilator. Will extubate to BiPAP given that he has sleep apnea and morbid obesity and copious secretions all of which will make extubation likely very difficult. Precedex to also help with alcohol withdrawal. Once extubated will likely need PRN Ativan per CIWA protocol as well. Further orders to follow based on clinical condition. Attestations Medical Necessity Statement*: Intubated for acute alcohol intoxication and respiratory failure. Coding Level of Care Code Acute Computer Peripheral Equipment Operator for [facility] Diagnoses Respiratory failure J96.90 Morbid obesity E66.01 Alcoholic intoxication F10.921 Complication of substance-induced condition: with delirium Dementia G30.9; F02.81 Alzheimer's disease onset: unspecified onset Dementia behavioral disturbance: with behavioral disturbance Dementia type: Alzheimer's disease Aspiration into lower respiratory tract T17.800A
--- NOTE | 2019-04-06 16:15 | PC.CHAP ---
Pastoral Care Encounter/Spiritual Assessment Type of Contact [] Declined commissioning specialist visit [x] Patient/Family/Request visit [] Outpatient visit [] Follow-up visit [] Physician referral [] Code/Alert [x] Routine visit [] Staff referral [] Actively dying [x] Patient sleeping [] Family support [] [] Out of room [] Palliative care [] [] Receiving care in room [] Pre-surgical visit [] Trauma [] Long length of stay [x] ICU visit [] Other: Relational/Emotional Strength [] Patient feels connected with others/family/visitors/staff [] Distress [] Loneliness/isolation [] Abandonment Spirituality of Patient [] Person of Rhea [] Attends Mandaeism of their Rhea [] Believes in Prayer [] Reads Bible or Pentecostalism materials [] There are Spiritual issues to be addressed Manufacturing Industrial Engineer Interventions [x] Prayer [] Active listening [x] Non-anxious presence [x] Spiritual/emotional support [] Crisis/trauma care [] Spiritual counseling [] Bereavement support [] Provided bereavement packet [] Provided Bible/devotional materials [] Provided toy/stuffed animal, coloring book to patient or family member [] Completed spiritual assessment [] Provided Communion [] Anointing/[place] [] Salvation [] Other: Impact on Illness or Injury [] Angry [] Fearful [] Anxious [] Often cries [] Exhaustion [] Unable to work [] Unable to attend samaritan [] Unable to walk/stand [] Unable to read [] Unable to drive [] Unable to eat/drink [] Unable to sleep [] Unable to be with family [x] Other: Summary patient intubated Time spent with patient 2 minutes
[2019-04-06] MEDS: finasteride 5 mg Tablet PO (20:41)
[2019-04-06] MEDS: divalproex ER 500 mg Tablet (24H) PO (20:41)
[2019-04-07] VITALS (26 sets, daily range): BP systolic 135–187; BP diastolic 68–115; PULSE 46–67; RESP 10–30; TEMP 36.4–36.6; O2SAT 92–100
[2019-04-07] MEDS: enoxaparin 40 mg/0.4 mL Syringe SUBCUT (00:25)
[2019-04-07] MEDS: propofol 1,000 MG/100 ML INJ 39.6 MG IV ×2 (00:25→01:44)
[2019-04-07] MEDS: piperacillin-tazobactam 3.375 GM in sodium chloride 0.9% (plus) 50 ML IV ×3 (01:41→17:44)
[2019-04-07] MEDS: ipratropium-albuterol 3 mL Neb INHALATION ×3 (02:33→20:05)
[2019-04-07] MEDS: propofol 1,000 MG/100 ML INJ 35.6 MG IV ×2 (04:26→07:11)
[2019-04-07 05:19] LABS: ABG PCO2 43.5 mmHg (35-45); ABG PH Result 7.41 (7.35-7.45); Arterial Blood Gas Hematocrit 41.3 % (42-52); Base Excess ABG 2.7 mmol/L (-2.0-2.0); Blood Gas Allen Test Pos; Blood Gas Sample Site Radial, right; Blood Gas Sample Type Arterial; Blood Gas Tidal Volume 0.55; Carboxyhemoglobin 0.7 %THgb (0.4-20.1); HCO3 ABG 27.8 mmol/L (22-26); HGB O2 Sat 96.3 % (95-100); Ionized Calcium Level - ABG 1.2 mmol/L (1.1-1.4); Methemoglobin 0.9 % (0.4-1.5); PO2 ABG 92.2 mmHg (80.0-100.0); Potassium Level - ABG 4.3 mmol/L (3.5-5.0); Total Hemoglobin 13.5 g/dL (14-18)
[2019-04-07] MEDS: levothyroxine 150 mcg Tablet PO (08:32)
[2019-04-07] MEDS: sennosides-docusate Tablet 1 TAB PO ×2 (08:32→17:43)
[2019-04-07] MEDS: buPROPion XL (24 HR) 300 mg Tablet PO (08:32)
[2019-04-07] MEDS: doxazosin 4 mg Tablet 8 MG PO (08:32)
[2019-04-07] MEDS: baclofen 10 mg Tablet PO ×2 (08:32→17:43)
[2019-04-07] MEDS: aspirin 81 mg Chew Tablet PO (08:32)
[2019-04-07] MEDS: FUROsemide 10 mg/mL SDV 2mL 20 MG IVP (08:50)
[2019-04-07 09:22] LABS: Oxygen Device VENT
[2019-04-07 09:24] LABS: Oxygen Device VENT
[2019-04-07 09:26] LABS: Alanine Aminotransferase 15 U/L (0-41); Albumin Level 3.1 g/dL (3.5-5.2); Alkaline Phosphatase 78 IU/L (40-130); Anion Gap 15.3 (5-19); Aspartate Amino Transferase 12 U/L (0-40); Blood Urea Nitrogen 13 mg/dL (8-23); Calcium 9.4 mg/Dl (8.8-10.2); Carbon Dioxide 22 mmol/L (22-29); Chloride 100 mmol/L (98-107); Glomerular Filtration Rate 298.2 mL/min (90-130); Glucose 130 mg/dL (74-106); Potassium 4.3 mmol/L (3.5-5.1); Sodium 133 mmol/L (136-145); Total Bilirubin 0.4 mg/dL (0.15-1.2); Total Protein 6.1 g/dL (6.6-8.7)
[2019-04-07 09:39] LABS: Oxygen Device VENT
[2019-04-07 09:45] LABS: Oxygen Device VENT; Oxygen Saturation ABG 97.9
[2019-04-07] MEDS: pantoprazole 40 mg SDV IVP (09:57)
[2019-04-07] MEDS: glycopyrrolate 0.2 mg/mL SDV 2 mL 0.1 MG IV (10:25)
[2019-04-07] MEDS: sodium chloride 0.9% 1,000 ML 75 ML IV (12:09)
[2019-04-07 12:26] LABS: Arterial Blood Gas Hematocrit 47.1 % (42-52); Blood Gas Operator Identificat JB; Blood Gas Sample Type ARTERIAL
--- NOTE | 2019-04-07 14:37 | PC.CHAP ---
Pastoral Care Encounter/Spiritual Assessment Type of Contact [] Declined crystal lapper visit [] Patient/Family/Request visit [] Outpatient visit [] Follow-up visit [] Physician referral [] Code/Alert [x] Routine visit [] Staff referral [] Actively dying [] Patient sleeping [] Family support [] [] Out of room [] Palliative care [] [] Receiving care in room [] Pre-surgical visit [] Trauma [] Long length of stay [x] ICU visit [] Other: Relational/Emotional Strength [] Patient feels connected with others/family/visitors/staff [] Distress [] Loneliness/isolation [] Abandonment Spirituality of Patient [] Person of Rhea [] Attends Yazidi of their Rhea [x] Believes in Prayer [] Reads Bible or Tenriism materials [] There are Spiritual issues to be addressed Blindmaker Interventions [x] Prayer [] Active listening [x] Non-anxious presence [x] Spiritual/emotional support [] Crisis/trauma care [] Spiritual counseling [] Bereavement support [] Provided bereavement packet [] Provided Bible/devotional materials [] Provided toy/stuffed animal, coloring book to patient or family member [x] Completed spiritual assessment [] Provided Communion [] Anointing/[place] [] Salvation [] Other: Impact on Illness or Injury [] Angry [x] Fearful [x] Anxious [] Often cries [] Exhaustion [] Unable to work [] Unable to attend tenriism [] Unable to walk/stand [] Unable to read [] Unable to drive [] Unable to eat/drink [] Unable to sleep [] Unable to be with family [] Other: Summary The patient was on life support,and awake. Blindmaker asked patient would like to be prayed for,and patient nodded yes. The patient seemed to be a little fearful and anxious. crystal lapper prayed for him. Time spent with patient
--- NOTE | 2019-04-07 17:48 | P.PN_ITS ---
Subjective Subjective: Interval history: Patient continues to have very thick secretions and EGD this morning. However today with weaning off of propofol was able to be taken off the ventilator and extubated this afternoon. Postextubation he is currently maintaining his O2 saturations and has adequate breathing effort. His tongue was noted to be coated with a thick white material. I am unable to appreciate at this time that this is candidiasis versus some corrosive changes from excessive Listerine intake. He has been afebrile and hemodynamically stable.. Medications: Reviewed: Yes Vitals/I&O/Wt Last Vital Signs Temp 97.6 F 04/07/19 08:00 Pulse 59 L 04/07/19 16:00 Resp 22 H 04/07/19 16:00 BP 168/102 04/07/19 16:00 Pulse Ox 94 04/07/19 16:00 04/07/19 04/07/19 04/07/19 06:59 14:59 22:59 Intake Total 1357.94 / 3180.020 1218.884 / 1218.884 Output Total 800 / 1650 1950 / 1950 Balance 557.94 / 1530.020 -731.116 / -731.116 Physical Exam Narrative: EXAM NARRATIVE: General intubated sedated when seen earlier in the morning, later extubated in the afternoon, follows commands to hold hands and toes. CVS S1-S2 is normal no murmurs rubs or gallops Chest is clear to auscultation bilateral anteriorly Extremities no cyanosis or clubbing Neuro intubated sedated rest as above. Urinary Catheter Management^: Santos: Cath Placed During This Visit: no A&P Assessment and plan (1) Respiratory failure: Status: Acute Code(s): J96.90 - Respiratory failure, unspecified, unspecified whether with hypoxia or hypercapnia (2) Morbid obesity: Status: Acute Code(s): E66.01 - Morbid (severe) obesity due to excess calories (3) Alcoholic intoxication: Status: Acute Qualifiers: Complication of substance-induced condition: with delirium Qualified Code(s): F10.921 - Alcohol use, unspecified with intoxication delirium Code(s): F10.929 - Alcohol use, unspecified with intoxication, unspecified (4) Dementia: Status: Acute Qualifiers: Alzheimer's disease onset: unspecified onset Dementia behavioral disturbance: with behavioral disturbance Dementia type: Alzheimer's disease Qualified Code(s): G30.9 - Alzheimer's disease, unspecified; F02.81 - Dementia in other diseases classified elsewhere with behavioral disturbance Code(s): F03.90 - Unspecified dementia without behavioral disturbance (5) Aspiration into lower respiratory tract: Status: Acute Code(s): T17.800A - Unspecified foreign body in other parts of respiratory tract causing asphyxiation, initial encounter Additional A&P Information Additional A&P Information: Patient has been weaned off of ventilator and extubated this afternoon. Currently doing okay. We will use BiPAP as needed. Will additionally start DuoNeb nebulization as needed. We will resume his home medications Nystatin swish and swallow for possible candidiasis oropharyngeal For his aspiration pneumonia as evidenced on his x-rays will continue Zosyn If continues to have adequate respiratory status, will transfer out of ICU tomorrow For possibility of alcohol withdrawal we will initiate monitoring per CIWA protocol. We will use Precedex and Ativan as needed. Attestations Medical Necessity Statement*: Management of acute alcohol intoxication requiring intubation for protecting airway. Coding Level of Care Code Acute Prepress Specialist for [facility] Fwd Diagnoses Respiratory failure J96.90 Morbid obesity E66.01 Alcoholic intoxication F10.921 Complication of substance-induced condition: with delirium Dementia G30.9; F02.81 Alzheimer's disease onset: unspecified onset Dementia behavioral disturbance: with behavioral disturbance Dementia type: Alzheimer's disease Aspiration into lower respiratory tract T17.800A
[2019-04-07] MEDS: LORazepam 2 mg/mL INJ 1 mL 1 MG IVP (20:57)
[2019-04-08] VITALS (24 sets, daily range): BP systolic 148–192; BP diastolic 74–109; PULSE 50–70; RESP 15–38; TEMP 36.7; O2SAT 93–99
[2019-04-08] MEDS: LORazepam 2 mg/mL INJ 1 mL 1 MG IVP ×5 (00:01→11:20)
[2019-04-08] MEDS: pantoprazole 40 mg SDV IVP ×3 (00:03→21:38)
[2019-04-08] MEDS: glycopyrrolate 0.2 mg/mL SDV 2 mL 0.1 MG IV (00:12)
[2019-04-08] MEDS: enoxaparin 40 mg/0.4 mL Syringe SUBCUT (00:14)
[2019-04-08] MEDS: sodium chloride 0.9% 1,000 ML 75 ML IV (00:14)
[2019-04-08] MEDS: piperacillin-tazobactam 3.375 GM in sodium chloride 0.9% (plus) 50 ML IV ×3 (01:51→17:30)
[2019-04-08] MEDS: ipratropium-albuterol 3 mL Neb INHALATION ×4 (01:57→19:53)
[2019-04-08 05:31] LABS: Basophils % 0.1 %; Hematocrit 45.5 % (42.0-52.0); Hemoglobin 14.4 g/dL (11.7-16.6); Lymphocytes # 0.8 10^3/uL (0.8-4.8); Lymphocytes % 8.3 %; Mean Corpuscular HGB Conc 31.6 g/dL (30.0-36.0); Mean Corpuscular Hemoglobin 30.8 pg (28.0-34.0); Mean Corpuscular Volume 97.2 fL (80-94); Mean Platelet Volume 11.3 fL (7.4-10.4); Monocytes # 1.2 10^3/uL (0.2-0.9); Neutrophils # 7.9 10^3/uL (1.8-7.7); Neutrophils % 79.1 %; Nucleated Red Blood Cells % 0 %; Platelet Count 252 10^3/cmm (130-400); Red Blood Count 4.68 10^6/uL (4.1-5.3); Red Cell Distribution Width 14.7 % (12.1-15.1)
--- NOTE | 2019-04-08 05:34 | PC.NURSE ---
Wasted 65 ml of IV Fentanyl bag from prior to extubation. Elvia Howell RN witnessed.
[2019-04-08 05:53] LABS: Alanine Aminotransferase 17 U/L (0-41); Albumin Level 3.7 g/dL (3.5-5.2); Alkaline Phosphatase 89 IU/L (40-130); Anion Gap 20.5 (5-19); Blood Urea Nitrogen 19 mg/dL (8-23); Calcium 9.7 mg/Dl (8.8-10.2); Carbon Dioxide 20 mmol/L (22-29); Chloride 99 mmol/L (98-107); Globulin 3.1 g/dL (1.3-4.6); Glomerular Filtration Rate 213.9 mL/min (90-130); Glucose 104 mg/dL (74-106); Potassium 4.5 mmol/L (3.5-5.1); Sodium 135 mmol/L (136-145); Total Bilirubin 0.6 mg/dL (0.15-1.2); Total Protein 6.8 g/dL (6.6-8.7)
[2019-04-08 06:51] LABS: Aspartate Amino Transferase 21 U/L (0-40)
[2019-04-08] MEDS: doxazosin 4 mg Tablet 8 MG PO (09:39)
[2019-04-08] MEDS: multivitamin therapeutic Tablet 1 TAB PO (09:39)
[2019-04-08] MEDS: sennosides-docusate Tablet 1 TAB PO ×2 (09:39→17:23)
[2019-04-08] MEDS: thiamine 100 mg Tablet PO (09:39)
[2019-04-08] MEDS: folic acid 1 mg Tablet PO (09:39)
[2019-04-08] MEDS: buPROPion XL (24 HR) 300 mg Tablet PO (09:39)
[2019-04-08] MEDS: baclofen 10 mg Tablet PO ×2 (09:39→17:23)
[2019-04-08] MEDS: aspirin 81 mg Chew Tablet PO (09:39)
[2019-04-08] MEDS: levothyroxine 150 mcg Tablet PO (09:39)
[2019-04-08] MEDS: nystatin 100,000 unit/mL UDC 5 mL 500000 UNIT PO ×4 (09:57→21:07)
--- NOTE | 2019-04-08 10:06 | PC.SOCIAL ---
IMM Received a call from patient's guardian, Marina Barcenas, and explained IMM to her. She verbalizes understanding. Initialed, dated, and timed and placed in chart and copy provided to patient's room.
[2019-04-08] MEDS: hyDRALAzine 20 mg/mL INJ 1 mL 10 MG IVP (10:50)
[2019-04-08] MEDS: FUROsemide 10 mg/mL SDV 4mL 40 MG IVP (10:50)
[2019-04-08] MEDS: finasteride 5 mg Tablet PO (21:06)
[2019-04-08] MEDS: divalproex ER 500 mg Tablet (24H) PO (21:06)
--- NOTE | 2019-04-08 21:59 | P.PN_ITS ---
Subjective Subjective: Interval history: Seen and examined earlier this morning. He had remained on Bipap overnight. Was doing well On nasal canula until later this afternoon when he started to become more dyspeic and then needed to be placed back on Bipap. BP ranging 180s, given one dose hydralazine. Vitals/I&O/Wt Last Vital Signs Temp 98.0 F 04/08/19 20:00 Pulse 55 L 04/08/19 21:14 Resp 23 H 04/08/19 20:00 BP 171/82 04/08/19 20:00 Pulse Ox 96 04/08/19 21:14 04/08/19 04/08/19 04/08/19 06:59 14:59 22:59 Intake Total 1005.25 / 2742.416 1028 / 1028 154 / 1182 Output Total 3750 / 3750 600 / 4350 Balance 1005.25 / -1007.584 -2722 / -2722 -446 / -3168 Physical Exam Narrative: EXAM NARRATIVE: Gen: Awake, but falling asleep during exam. Able to state his correct name and place CVS: [id number] RS: clear to auscultation B/L Abd: Soft, NT/ND Urinary Catheter Management^: Santos: Cath Placed During This Visit: no A&P Assessment and plan (1) Respiratory failure: Status: Acute Code(s): J96.90 - Respiratory failure, unspecified, unspecified whether with hypoxia or hypercapnia (2) Morbid obesity: Status: Acute Code(s): E66.01 - Morbid (severe) obesity due to excess calories (3) Alcoholic intoxication: Status: Acute Qualifiers: Complication of substance-induced condition: with delirium Qualified Code(s): F10.921 - Alcohol use, unspecified with intoxication delirium Code(s): F10.929 - Alcohol use, unspecified with intoxication, unspecified (4) Dementia: Status: Acute Qualifiers: Alzheimer's disease onset: unspecified onset Dementia behavioral disturbance: with behavioral disturbance Dementia type: Alzheimer's disease Qualified Code(s): G30.9 - Alzheimer's disease, unspecified; F02.81 - Dementia in other diseases classified elsewhere with behavioral disturbance Code(s): F03.90 - Unspecified dementia without behavioral disturbance (5) Aspiration into lower respiratory tract: Status: Acute Code(s): T17.800A - Unspecified foreign body in other parts of respiratory tract causing asphyxiation, initial encounter (6) Positive occult stool blood test: Status: Acute Code(s): R19.5 - Other fecal abnormalities Additional A&P Information Additional A&P Information: Weaned off ventilator and remained on Bipap overnight. Started to be more tachypneic this morning, on auscultation had rales, given 40mg iv lasix, IVF discontinued and placed back on Bipap Will hold librium given that he appears somewhat lethargic, at risk for aspiration with further depression in mental status Hydralazine prn added for BP control High risk for reintubation For his aspiration pneumonia as evidenced on his x-rays will continue Zosyn For possibility of alcohol withdrawal Conitnue CIWA protocol. We will use Precedex and Ativan as needed.Holding Long acting benzos until mental status improves. Attestations Medical Necessity Statement*: optimization of respiratory status Coding Level of Care Code Acute Design Maker for [facility]very Diagnoses Respiratory failure J96.90 Morbid obesity E66.01 Alcoholic intoxication F10.921 Complication of substance-induced condition: with delirium Dementia G30.9; F02.81 Alzheimer's disease onset: unspecified onset Dementia behavioral disturbance: with behavioral disturbance Dementia type: Alzheimer's disease Aspiration into lower respiratory tract T17.800A Positive occult stool blood test R19.5
[2019-04-09] VITALS (18 sets, daily range): BP systolic 104–169; BP diastolic 63–112; PULSE 51–108; RESP 12–73; TEMP 36.6–36.8; O2SAT 89–99
[2019-04-09] MEDS: enoxaparin 40 mg/0.4 mL Syringe SUBCUT (00:06)
--- NOTE | 2019-04-09 01:29 | PHA.FALL ---
A Pharmacy Consult Was Conducted For Zain Resendiz Due To: Barker Fall Scale Risk Level: High Fall Risk On 04/08/19 20:00 And A Medication Fall Risk Score Greater Than 12. The Recommendations Are As Follows: Be aware that chlordiazepoxide (librium) (presently on hold) has an increased volume of distribution in the elderly and thus has a more prolonged duration of action than in a younger person. Cardura (doxazosin) is an alpha-bigg cardiovascular agent that may cause orthostatic hypotension, dizziness, syncope, bradycardia, and impaired cerebral perfusion. Neurontin (gabapentin is an anticonvulsant that has risk factors of sedation, psychomotor impairment, and confusion. Ativan (lorazepam), like chlordiazepoxide is a benzodiazepine and as such also has risk factors of psychomotor impairment, sedation, orthostatic hypotension, confusion, dizziness, and confusion. I would suggest an evaluation of the continued need for both chlordiazepoxide and lorazepam. Be aware that chlordiazepoxide can lead to the so called Librium Rage . Gabapentin, lorazepam, and chlordiazepoxide all may cause sedation and taken together may significantly increase fall risk. Thank you for the consult, Stephanie Madison, 04/09/2019.
[2019-04-09] MEDS: ipratropium-albuterol 3 mL Neb INHALATION ×3 (01:38→20:09)
[2019-04-09] MEDS: piperacillin-tazobactam 3.375 GM in sodium chloride 0.9% (plus) 50 ML IV ×3 (04:44→21:21)
[2019-04-09 06:52] LABS: NT Pro B Type Natriuretic Pept 9436 pg/mL (0-125)
--- NOTE | 2019-04-09 08:30 | ECG_ITS ---
Measurements Intervals Cook Rate: 59 P: -18 MT: 198 QRS: 41 QRSD: 89 T: 8 QT: 449 QTc: 446 SINUS BRADYCARDIA Compared to ECG 04/04/2019 04:30:53 Sinus rhythm no longer present First degree AV block no longer present ST (T wave) deviation no longer present Electronically Signed On 04-09-2019 14:40:46 OPERATING ROOM SURGICAL TECHNICIAN by Patrick Joshi M.D. [email or web address]
--- NOTE | 2019-04-09 08:31 | XR_ITS ---
WS: [id number] Portable AP upright chest, 04/09/2019, 0841 hours. Clinical Data: chf Comparison: Portable chest, 04/05/2019 Findings: The consolidation in the right middle lobe has increased. There is a small right effusion. There is minimal atelectasis in the left lower lobe. The heart size remains same. The aortic arch is minimally tortuous. The pulmonary vascularity is mildly increased. Monitor leads are on the chest wal l. XR/XR chest 1V 20424 Impression: 1. Right middle lobe consolidation has increased. 2. Development of small right effusion.
[2019-04-09 08:57] LABS: D Dimer 2.08 ug/mIFEU (0-0.59)
[2019-04-09] MEDS: FUROsemide 10 mg/mL SDV 4mL 40 MG IVP ×2 (09:54→21:22)
[2019-04-09] MEDS: pantoprazole 40 mg SDV IVP ×2 (09:54→21:24)
[2019-04-09] MEDS: sennosides-docusate Tablet 1 TAB PO ×2 (09:55→18:27)
[2019-04-09] MEDS: baclofen 10 mg Tablet PO ×2 (09:55→18:27)
[2019-04-09] MEDS: folic acid 1 mg Tablet PO (09:55)
[2019-04-09] MEDS: levothyroxine 150 mcg Tablet PO (09:55)
[2019-04-09] MEDS: buPROPion XL (24 HR) 300 mg Tablet PO (09:55)
[2019-04-09] MEDS: doxazosin 4 mg Tablet 8 MG PO (09:55)
[2019-04-09] MEDS: thiamine 100 mg Tablet PO (09:55)
[2019-04-09] MEDS: multivitamin therapeutic Tablet 1 TAB PO (09:56)
[2019-04-09] MEDS: nystatin 100,000 unit/mL UDC 5 mL 500000 UNIT PO ×4 (09:56→21:28)
--- NOTE | 2019-04-09 14:55 | USCV_ITS ---
Zain Resendiz Age: 69 Gender: M : 1950 Exam Date: 04/09/2019 16:25 Ordering Phys: Solomon Butcher MD Technologist: Nakia English Exam Location: [facility] [place] Indication: DVT HISTORY: Swollen legs PROCEDURES: The venous duplex Doppler examination of both lower extremities was performed in the standard fashion. The following venous structures were evaluated: common femoral vein, profunda vein, proximal portion of the greater saphenous vein, superficial femoral vein, and the popliteal vein. In addition, the posterior tibial and peroneal trunk were evaluated. Serial compression, augmentation maneuvers, and spectral Doppler flow evaluation were performed. FINDINGS: No DVT seen in any vessel examined CONCLUSIONS No evidence of DVT in the above-mentioned identifiable veins. Dr Alyse العلي MD [facility] (Electronically Signed) Final Date: 09 April 2019 19:31 S
--- NOTE | 2019-04-09 15:02 | PM.PN ---
Subjective Subjective: Interval history: No acute events overnight. In last 24 hours patient has been on Precedex, have not received any Ativan or Librium. This morning on evaluation patient is lying comfortably in bed on BiPAP. Opens his eyes and follows commands and is AO x3 to verbal and tactile stimuli. Medications: Reviewed: Yes Vitals/I&O/Wt Last Vital Signs Temp 98.0 F 04/09/19 02:00 Pulse 55 L 04/09/19 07:16 Resp 12 04/09/19 07:16 BP 166/92 04/09/19 06:00 Pulse Ox 98 04/09/19 07:16 04/09/19 04/09/19 04/09/19 06:59 14:59 22:59 Intake Total 704 / 1936 Balance 704 / -2414 Physical Exam Narrative: EXAM NARRATIVE: General: No acute distress, AO x3, lethargic HEENT: PERRLA, pupils bilaterally equal and reactive Chest: Normal vesicular breath sounds, bilateral fine crackles lower zones, equal good air entry bilaterally, on BiPAP CVS: S1-S2 regular, no murmurs, no tachycardia, no gallops, no rubs Abdomen: Soft, nontender, no organomegaly, bowel sounds present, obese Neuro: No focal deficits, no facial deformity, AO x3, power 5/5 in all limbs Urinary Catheter Management^: Santos: Cath Placed During This Visit: no A&P Assessment and plan (1) Altered mental status: Status: Acute Qualifiers: Altered mental status type: stupor Qualified Code(s): R40.1 - Stupor Code(s): R41.82 - Altered mental status, unspecified (2) Alcoholic intoxication: Status: Acute Qualifiers: Complication of substance-induced condition: with delirium Qualified Code(s): F10.921 - Alcohol use, unspecified with intoxication delirium Code(s): F10.929 - Alcohol use, unspecified with intoxication, unspecified (3) Respiratory failure: Status: Acute Code(s): J96.90 - Respiratory failure, unspecified, unspecified whether with hypoxia or hypercapnia (4) Aspiration into lower respiratory tract: Status: Acute Code(s): T17.800A - Unspecified foreign body in other parts of respiratory tract causing asphyxiation, initial encounter (5) Positive occult stool blood test: Status: Acute Code(s): R19.5 - Other fecal abnormalities (6) Suicidal ideation: Status: Acute Code(s): R45.851 - Suicidal ideations Additional A&P Information Additional A&P Information: Altered mental status because of mouthwash toxicity taken because of suicidal ideations: Altered mental status is improving. We will plan to wean off Precedex. Restart patient on Librium 25 mg every 8 hourly. We will try to wean as possible from tomorrow onwards. Try to avoid Ativan. For now continue Ativan 1 mg every 4 hours as needed for agitation. Psych evaluation appreciated. Seizure precautions, fall precautions per shift. Acute hypoxic respiratory failure most likely due to aspiration pneumonia along with CHF: proBNP elevated today. No echo in the system but done today. Awaiting read. On exam patient does look like in fluid overload. Chest x-ray stat. IV Lasix 40 mg every 12. Daily weights Strict intake and output. Continue with Zosyn. Patient is on BiPAP currently. We will try to wean him off to nasal cannula. BiPAP nightly. Keeping saturation over 92%. Swallow evaluation as x-ray suggestive of right middle lobe consolidation. Most likely from aspiration when patient was altered. Occult blood positive: Hemoglobin stable. Continue with Protonix 40 mg IV twice daily. Stop aspirin. Hypertension: No antihypertensives at home medications. Will add amlodipine 5 mg. Creatinine stable. Cannot add beta-bigg as patient is having heart racing 55. Continue with hydralazine as needed for blood pressure control. Continue other home psych medications for anxiety/depression. Full code Lovenox for DVT prophylaxis. We will continue to monitor hemoglobin. Cardiac diet as tolerated. Will modify as per the swallow evaluation. Continue one-to-one sitter for suicidal ideation. Attestations Medical Necessity Statement*: Patient needs continued hospitalization for management of altered mental status, resolving hypoxic failure. Time Spent in Patient Care: Greater than 35 minutes Coding Level of Care Code Acute Building Operator for Chg Fwd Diagnoses Altered mental status R40.1 Altered mental status type: stupor Alcoholic intoxication F10.921 Complication of substance-induced condition: with delirium Respiratory failure J96.90 Aspiration into lower respiratory tract T17.800A Positive occult stool blood test R19.5 Suicidal ideation R45.851
[2019-04-09 15:12] LABS: Basophils % 0.1 %; Eosinophils % 0.3 %; Hematocrit 45.3 % (42.0-52.0); Hemoglobin 14.5 g/dL (11.7-16.6); Lymphocytes # 1.2 10^3/uL (0.8-4.8); Lymphocytes % 16.1 %; Mean Corpuscular Hemoglobin 30.8 pg (28.0-34.0); Mean Corpuscular Volume 96.2 fL (80-94); Mean Platelet Volume 11.6 fL (7.4-10.4); Monocytes # 1.1 10^3/uL (0.2-0.9); Monocytes % 15.1 %; Nucleated Red Blood Cells % 0 %; Platelet Count 264 10^3/cmm (130-400); Red Blood Count 4.71 10^6/uL (4.1-5.3); Red Cell Distribution Width 14.6 % (12.1-15.1); White Blood Count 7.4 10^3/uL (4.0-10.0)
[2019-04-09 15:25] LABS: Alanine Aminotransferase 17 U/L (0-41); Albumin Level 3.5 g/dL (3.5-5.2); Alkaline Phosphatase 84 IU/L (40-130); Anion Gap 16.5 (5-19); Aspartate Amino Transferase 16 U/L (0-40); Blood Urea Nitrogen 23 mg/dL (8-23); Calcium 9.4 mg/Dl (8.8-10.2); Carbon Dioxide 27 mmol/L (22-29); Chloride 94 mmol/L (98-107); Globulin 2.3 g/dL (1.3-4.6); Glomerular Filtration Rate 165.4 mL/min (90-130); Glucose 103 mg/dL (74-106); Potassium 4.5 mmol/L (3.5-5.1); Sodium 133 mmol/L (136-145); Total Bilirubin 0.7 mg/dL (0.15-1.2); Total Protein 5.8 g/dL (6.6-8.7)
--- NOTE | 2019-04-09 15:42 | PC.CHAP ---
Pastoral Care Encounter/Spiritual Assessment Type of Contact [] Declined animal keeper head visit [] Patient/Family/Request visit [] Outpatient visit [] Follow-up visit [] Physician referral [] Code/Alert [x] Routine visit [] Staff referral [] Actively dying [] Patient sleeping [] Family support [] [] Out of room [] Palliative care [] [x] Receiving care in room [] Pre-surgical visit [] Trauma [] Long length of stay [] ICU visit [] Other: Relational/Emotional Strength [] Patient feels connected with others/family/visitors/staff [] Distress [] Loneliness/isolation [] Abandonment Spirituality of Patient [] Person of Rhea [] Attends Adventism of their Rhea [] Believes in Prayer [] Reads Bible or Muslim materials [] There are Spiritual issues to be addressed Tree Trimmer Helper Interventions [] Prayer [] Active listening [] Non-anxious presence [] Spiritual/emotional support [] Crisis/trauma care [] Spiritual counseling [] Bereavement support [] Provided bereavement packet [] Provided Bible/devotional materials [] Provided toy/stuffed animal, coloring book to patient or family member [] Completed spiritual assessment [] Provided Communion [] Anointing/[place] [] Salvation [] Other: Impact on Illness or Injury [] Angry [] Fearful [] Anxious [] Often cries [] Exhaustion [] Unable to work [] Unable to attend congregational [] Unable to walk/stand [] Unable to read [] Unable to drive [] Unable to eat/drink [] Unable to sleep [] Unable to be with family [] Other: Summary Time spent with patient patient was being treated by staff. will revisit. 3 min.
--- NOTE | 2019-04-09 16:43 | P.CONIM_ITS ---
Providers/Reason for Consult Consulting Physican/Specialty*: Kemal Chawla M.D., psychiatry. Reason for Consult*: Intentional overdose. Attending Physician: Solomon Butcher MD Primary Care Provider: Deloris Echavarria DO Psych Consult HPI History of Present Illness Zain Resendiz is a 69 year old male with a limited history of psychiatric care. Who presents to the ICU after an intentional ingestion of Listerine which he endorses to the a suicide attempt. He reports that he and his girlfriend had a falling out/broke up and he was feeling sad and decided to end it. He reports that he has had a challenging life at times. 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 He reports that he was able to make a life out of that and that he has been doing fairly well but had a relationship that ended and his response was that he made this gesture. He endorses today that he feels really stupid that he did that. He feels happy to be alive and has no interest in dying. He reports that he is fairly immobile, using a wheelchair to get around and he does endorse that he actively planned out getting the Listerine and making this gesture. But he does realize that given always been through that he'll get through this and that things will be better again. He denies any interest in dying and reports a desire to return to his previous living arrangements and make the best of his life. He endorses a history of problem drinking/alcoholism with multiple DUIs and rehabilitation stints. He denies currently drinking with any regularity. We discussed the risks, benefits and alternatives of starting Lexapro and he understood and agreed to proceed as documented in his note. Psychiatric history: Endorses a diagnosis of bipolar disorder during his life as well as alcohol use disorder but denies significant hospitalizations. Substance abuse history: Endorses smoking cigarettes, history of significant alcohol use, historical occasional marijuana use but denies any other significant illicit drug use, he reports multiple DUIs and having gone through rehabilitation. Family history: Endorses mental health and addiction issues in his family but denies suicide attempts or completions. Developmental history: He denies significant issues with his mom's or delivery at home, he reports longer walking thought to be his developmental milestones on time, and reports not needing speech therapy or any special education services. Psychosocial history: Please refer to attending note psychosocial issues. However he does endorse his parents stayed together through their lives. He does endorse having at least one sibling. He lives on the current nursing facility for about 6 months and has been in different assisted living/correction facilities for about 20 years. He denies significant legal history. Meds Current Medications: Current Medications Generic Name Dose Route Start Last Admin Trade Name Imani PRN Reason Stop Dose Admin Albuterol/Ipratrop ium 3 ml 04/09/19 08:32 04/11/19 08:26 Duoneb INHALATION 3 ml Q6H CARLY Administration Amlodipine Besylat e 5 mg 04/09/19 15:35 04/11/19 08:38 Norvasc PO 5 mg DAILY CARLY Administration Aspirin 81 mg 04/06/19 09:45 04/11/19 08:38 Aspirin Chewable PO 81 mg DAILY CARLY Administration Baclofen 10 mg 04/04/19 09:00 04/11/19 08:39 Lioresal PO 10 mg BID CARLY Administration Bupropion HCl 300 mg 04/04/19 09:00 04/11/19 08:39 Wellbutrin Xl (2 4 Hr) PO 300 mg DAILY CARLY Administration Divalproex Sodium 500 mg 04/04/19 21:00 04/10/19 21:44 Depakote Er PO 500 mg BEDTIME CARLY Administration Doxazosin Mesylate 8 mg 04/04/19 09:00 04/11/19 08:38 Cardura PO 8 mg DAILY CARLY Administration Enoxaparin Sodium 40 mg 04/04/19 00:57 04/11/19 02:30 Lovenox SUBCUT 40 mg Q24H CARLY Administration Finasteride 5 mg 04/04/19 21:00 04/10/19 21:44 Proscar PO 5 mg BEDTIME CARLY Administration Folic Acid 1 mg 04/08/19 09:00 04/11/19 08:38 Folic Acid PO 1 mg DAILY CARLY Administration Furosemide 40 mg 04/09/19 08:45 04/11/19 09:58 Lasix IVP 40 mg Q12H CARLY Administration Dexmedetomidine HC l 400 mcg/ 104 mls @ 0 mls/h r 04/07/19 08:45 04/09/19 13:00 Sodium Chloride IV Infused .Q0M CARLY Titration Protocol Per Protocol Levothyroxine Sodi um 150 mcg 04/04/19 09:00 04/11/19 08:39 Synthroid PO 150 mcg DAILY CARLY Administration Lorazepam 1 mg 04/09/19 00:05 04/10/19 23:20 Ativan IVP 1 mg Q4H PRN Administration ALCOHOL WITHDRAWA L Protocol Multivitamins Ther apeutic 1 tab 04/08/19 09:00 04/11/19 08:39 Multivitamin Tab PO 1 tab DAILY CARLY Administration Nystatin 500,000 unit 04/07/19 21:00 04/11/19 08:40 Nystatin PO Not Given QID CARLY Pantoprazole Sodiu m 40 mg 04/11/19 09:00 04/11/19 09:58 Protonix PO 40 mg BID CARLY Administration Senna/Docusate Sod ium 1 tab 04/04/19 09:00 04/11/19 08:39 Senna-S PO 1 tab BID CARLY Administration Thiamine Mononitra te 100 mg 04/08/19 09:00 04/11/19 08:39 Vitamin B-1 PO 100 mg DAILY CARLY Administration PFSH NPU PFSH: Statuses (acute, chronic, etc) shown below reflect problem list status as previously entered and may not be historically accurate Medical History (Updated 04/11/19 @ 11:01 by Kemal Chawla MD) BPH (benign prostatic hyperplasia) (Acute) COPD (chronic obstructive pulmonary disease) (Acute) GERD (gastroesophageal reflux disease) (Acute) Hospital-acquired pneumonia (Acute) Hypertension (Acute) Hyponatremia (Acute) Hypothyroidism (Acute) Morbid obesity (Acute) MRSA (methicillin resistant staph aureus) culture positive (Acute) Neuropathy (Acute) Pressure ulcer with abrasion, blister, partial thickness skin loss involving epidermis and/or dermis (Acute) Radiculopathy (Acute) Spastic paralysis (Acute) Spinal stenosis (Acute) Suicidal ideation (Acute) Surgical History (Updated 04/04/19 @ 01:00 by Hemal Mcclelland MD) Surgical history unknown (Acute) Family History (Updated 04/04/19 @ 00:59 by Hemal Mcclelland MD) Other Diabetes Hypertension Social History (Updated 04/04/19 @ 00:59 by Hemal Mcclelland MD) Smoking and tobacco status: light tobacco smoker Alcohol intake: former Substance/Drug Use: never Mental Status Exam MSE Comments: This is an obese white male with limited dress, grooming and eye contact. No abnormal movements for psychomotor retardation. Poor dentition/absent teeth. Operatively exam in no acute distress. Speech was dysarthric and decreased rate and volume. Mood described as a little better but still depressed affect. Thought process organized. Thought content: Patient denies any suicidal or homicidal ideation, no delusions reported noted, he denied any auditory or visual hallucinations. Attention and concentration were intact and memory was unreliable but none were formally tested. He is alert and oriented ?3. Insight and judgment are fair. Vitals/I&O/Wt Last Vital Signs Temp 97.6 F 04/11/19 08:00 Pulse 76 04/11/19 08:31 Resp 18 04/11/19 08:26 BP 139/83 04/11/19 08:00 Pulse Ox 100 04/11/19 08:26 04/10/19 04/11/19 04/11/19 22:59 06:59 14:59 Intake Total 450 / 1060 650 / 1710 Output Total 700 / 2960 3000 / 5960 Balance -250 / -1900 -2350 / -4250 Weight last 48 hrs Weight 132.251 kg Physical Exam Urinary Catheter Management^: Santos: Cath Placed During This Visit: no A&P Assessment and plan (1) Depression: This is a 69-year-old white male with a recent intentional ingestion with a history of depression and significant medical comorbidities who presents with some low mood secondary to recent breakup who now reports that he is having a change of heart and feels glad to be alive and is open to some adjustment to his medication. 1. Continue current medications. Except: 2. Start Lexapro 10 mg by mouth daily. 3. Encourage mental health follow-up after discharge including therapy psychiatric follow-up. 4. Do not see the need for further psychiatric inpatient hospitalization after medical stability and clearance are obtained. 5. No need for one-to-one sitter or 96 hour hold. Status: Acute Code(s): F32.9 - Major depressive disorder, single episode, unspecified Attestations NPU Medical Necessity Statement*: N/A. Please refer hospitalization decisions to the primary team. However no need for further inpatient psychiatric care after medical clearance. Coding Level of Care Code Acute Farm Loan Inspector for Chg Fwd Diagnoses Depression F32.9
[2019-04-09] MEDS: chlordiazePOXIDE 25 mg Capsule PO (16:46)
[2019-04-09] MEDS: amlodipine 5 mg Tablet PO (16:46)
[2019-04-09] MEDS: LORazepam 2 mg/mL INJ 1 mL 1 MG IVP (21:22)
[2019-04-09] MEDS: finasteride 5 mg Tablet PO (21:22)
[2019-04-09] MEDS: divalproex ER 500 mg Tablet (24H) PO (21:22)
--- NOTE | 2019-04-09 23:37 | USCV_ITS ---
MartínZain Age: 69 Gender: M : 1950 Exam Date: 04/09/2019 06:01 Ordering Phys: Hattie Romero MD Technologist: Janice Cruz Exam Location: [facility] [place] Indication: R/O CHF BP: 166 / 92 HR: 53 Rhythm: Sinus Technical Quality: Technically difficult study MEASUREMENTS (Male / Female) Normal Values 2D ECHO LV Diastolic Diameter PLAX 5.3 cm 4.2 - 5.9 / 3.9 - 5.3 cm LV Systolic Diameter PLAX 3.8 cm IVS Diastolic Thickness 1.3 cm 0.6 - 1.0 / 0.6 - 0.9 cm IVS Systolic Thickness 1.6 cm LVPW Diastolic Thickness 1.3 cm 0.6 - 1.0 / 0.6 - 0.9 cm LVPW Systolic Thickness 1.8 cm LVOT Diameter 2.1 cm LV Ejection Fraction 2D Teich 53.3 % LV Ejection Fraction MOD 2C 55.1 % LV Ejection Fraction 2C AL 55.9 % LA Diameter 4.4 cm LA Width 4.3 cm LA Height 5.2 cm RA Width 4.6 cm RA Height 5.3 cm Aorta at Sinotubular Diameter 3.0 cm M-MODE Aortic Annulus Diameter 3.8 cm LA Ao Ratio MM 1.2 DOPPLER AV Peak Velocity 104.0 cm/s LVOT Peak Velocity 64.0 cm/s AV Area Cont Eq vti 2.0 cm squared AV Area Cont Eq pk 2.1 cm squared MV Area PHT 3.3 cm squared Mitral E to A Ratio 2.0 MV E' Velocity 9.0 cm/s Mitral E to MV E' Ratio 12.5 Mitral E to LV E' Lateral Ratio 11.2 Mitral E to LV E' Septal Ratio 14.2 TV Peak E Velocity 39.0 cm/s Right Atrial Pressure 8.0 mmHg PV Peak Velocity 73.0 cm/s RV Acceleration Time 0.1 s RV Ejection Time 0.4 s RV AcT/ET 0.3 FINDINGS Left Ventricle Normal left ventricular size and systolic function, EF 57 %. No regional wall motion abnormalities. Right Ventricle The right ventricle is normal in size and function. Right Atrium Mildly increased right atrial size. Left Atrium Mildly increased left atrial size. Mitral Valve Mild mitral valve regurgitation. Aortic Valve Trace aortic valve regurgitation. Tricuspid Valve Trace tricuspid valve regurgitation. Pulmonic Valve Pulmonic valve not well visualized. Pericardium Normal pericardium without effusion. Aorta Normal ascending aorta dimension. CONCLUSIONS Normal left ventricular size and systolic function, EF 57 %. No regional wall motion abnormalities. Mild biatrial enlargement Mild mitral valve regurgitation. Trace of aortic and tricuspid valve regurgitation. There is no pericardial effusion. There are no intracardiac masses. Technically difficult study because of the poor ultrasonic window. No previous study is available for comparison. Dr Alyse العلي MD FACC (Electronically Signed) Final Date: 09 April 2019 19:37 S
[2019-04-10] VITALS (19 sets, daily range): BP systolic 98–161; BP diastolic 56–112; PULSE 80–110; RESP 12–22; TEMP 36.4–37.2; O2SAT 89–98
[2019-04-10] MEDS: chlordiazePOXIDE 25 mg Capsule PO ×3 (01:36→21:44)
[2019-04-10] MEDS: enoxaparin 40 mg/0.4 mL Syringe SUBCUT (01:36)
[2019-04-10] MEDS: ipratropium-albuterol 3 mL Neb INHALATION ×3 (02:53→20:45)
--- NOTE | 2019-04-10 02:54 | PC.RESP ---
bipap on standby at this time
[2019-04-10] MEDS: LORazepam 2 mg/mL INJ 1 mL 1 MG IVP ×2 (03:45→23:20)
[2019-04-10] MEDS: piperacillin-tazobactam 3.375 GM in sodium chloride 0.9% (plus) 50 ML IV ×3 (03:45→21:47)
[2019-04-10 04:26] LABS: Basophils % 0.1 %; Hematocrit 45.6 % (42.0-52.0); Hemoglobin 14.8 g/dL (11.7-16.6); Lymphocytes % 12.5 %; Mean Corpuscular HGB Conc 32.5 g/dL (30.0-36.0); Mean Corpuscular Hemoglobin 31.6 pg (28.0-34.0); Mean Corpuscular Volume 97.2 fL (80-94); Mean Platelet Volume 11.1 fL (7.4-10.4); Monocytes # 0.6 10^3/uL (0.2-0.9); Monocytes % 7.5 %; Neutrophils % 78.6 %; Nucleated Red Blood Cells % 0 %; Platelet Count 279 10^3/cmm (130-400); Red Blood Count 4.69 10^6/uL (4.1-5.3); Red Cell Distribution Width 14.6 % (12.1-15.1); White Blood Count 7.6 10^3/uL (4.0-10.0)
[2019-04-10 04:39] LABS: Alanine Aminotransferase 22 U/L (0-41); Albumin Level 3.5 g/dL (3.5-5.2); Alkaline Phosphatase 90 IU/L (40-130); Anion Gap 16.6 (5-19); Aspartate Amino Transferase 20 U/L (0-40); Blood Urea Nitrogen 24 mg/dL (8-23); Calcium 9.4 mg/Dl (8.8-10.2); Carbon Dioxide 28 mmol/L (22-29); Chloride 94 mmol/L (98-107); Globulin 3.3 g/dL (1.3-4.6); Glucose 89 mg/dL (74-106); Potassium 3.6 mmol/L (3.5-5.1); Sodium 135 mmol/L (136-145); Total Bilirubin 0.8 mg/dL (0.15-1.2); Total Protein 6.8 g/dL (6.6-8.7)
[2019-04-10] MEDS: gabapentin 100 mg Capsule 150 MG PO ×2 (09:21→17:50)
[2019-04-10] MEDS: doxazosin 4 mg Tablet 8 MG PO (09:21)
[2019-04-10] MEDS: multivitamin therapeutic Tablet 1 TAB PO (09:22)
[2019-04-10] MEDS: buPROPion XL (24 HR) 300 mg Tablet PO (09:22)
[2019-04-10] MEDS: baclofen 10 mg Tablet PO ×2 (09:22→17:50)
[2019-04-10] MEDS: amlodipine 5 mg Tablet PO (09:22)
[2019-04-10] MEDS: folic acid 1 mg Tablet PO (09:22)
[2019-04-10] MEDS: aspirin 81 mg Chew Tablet PO (09:22)
[2019-04-10] MEDS: thiamine 100 mg Tablet PO (09:22)
[2019-04-10] MEDS: pantoprazole 40 mg SDV IVP ×2 (09:23→21:48)
[2019-04-10] MEDS: sennosides-docusate Tablet 1 TAB PO ×2 (09:23→17:50)
[2019-04-10] MEDS: FUROsemide 10 mg/mL SDV 4mL 40 MG IVP ×2 (09:24→21:44)
[2019-04-10] MEDS: levothyroxine 150 mcg Tablet PO (09:42)
--- NOTE | 2019-04-10 16:41 | PM.PN ---
Subjective Subjective: Interval history: No acute events overnight. In last 24 hours patient has been off Precedex since yesterday afternoon, have not received any Ativan but has been on Librium. This morning on evaluation patient is lying comfortably in bed on 4 L NC BiPAP. On speaking further he states he was 'stupid to attempt lysterine ingestion. But did that as he was in a bad relationship and knows it was wrong of him'. Denies any suicidal and homicidal ideations. Medications: Reviewed: Yes Vitals/I&O/Wt Last Vital Signs Temp 98.7 F 04/10/19 16:00 Pulse 85 04/10/19 16:00 Resp 16 04/10/19 16:00 BP 104/56 04/10/19 16:00 Pulse Ox 92 04/10/19 16:00 04/10/19 04/10/19 04/10/19 06:59 14:59 22:59 Intake Total 450 / 692 610 / 610 Output Total 2800 / 3400 2260 / 2260 Balance -2350 / -2708 -1650 / -1650 Weight last 48 hrs Weight 132.251 kg Weight 132.251 kg Physical Exam Narrative: EXAM NARRATIVE: General: No acute distress, AO x3, lethargic HEENT: PERRLA, pupils bilaterally equal and reactive Chest: Normal vesicular breath sounds, bilateral fine crackles lower zones, equal good air entry bilaterally, on NC. CVS: S1-S2 regular, no murmurs, no tachycardia, no gallops, no rubs Abdomen: Soft, nontender, no organomegaly, bowel sounds present, obese Neuro: No focal deficits, no facial deformity, AO x3, power 5/5 in all limbs Urinary Catheter Management^: Sandy: Cath Placed During This Visit: yes. A&P Assessment and plan (1) Altered mental status: Status: Acute Qualifiers: Altered mental status type: stupor Qualified Code(s): R40.1 - Stupor Code(s): R41.82 - Altered mental status, unspecified (2) Alcoholic intoxication: Status: Acute Qualifiers: Complication of substance-induced condition: with delirium Qualified Code(s): F10.921 - Alcohol use, unspecified with intoxication delirium Code(s): F10.929 - Alcohol use, unspecified with intoxication, unspecified (3) Respiratory failure: Status: Acute Code(s): J96.90 - Respiratory failure, unspecified, unspecified whether with hypoxia or hypercapnia (4) Aspiration into lower respiratory tract: Status: Acute Code(s): T17.800A - Unspecified foreign body in other parts of respiratory tract causing asphyxiation, initial encounter (5) Positive occult stool blood test: Status: Acute Code(s): R19.5 - Other fecal abnormalities (6) Suicidal ideation: Status: Acute Code(s): R45.851 - Suicidal ideations Additional A&P Information Additional A&P Information: Altered mental status because of mouthwash toxicity taken because of suicidal ideations: Altered mental status is improving. Off precedex since yesterday. C/w Librium 25 mg PO Q8h today. Will wean to Q12 tomorrow. Try to avoid Ativan. For now continue Ativan 1 mg every 4 hours as needed for agitation. Psych evaluation appreciated. No active ideations as per psych eval. Pt has good insight. Seizure precautions, fall precautions per shift. Acute hypoxic respiratory failure most likely due to aspiration pneumonia along with CHF: proBNP elevated today. ECHO result appreciated. On exam patient does look like in fluid overload. c/w IV Lasix 40 mg every 12. Daily weights Strict intake and output. Continue with Zosyn day 10/04 today. Last dose today. Diet as per Swallow eval. Occult blood positive: Hemoglobin stable. Continue with Protonix 40 mg IV twice daily. Restart aspirin.Will monitor hb for now. Hypertension: BP better controlled after adding amlo No antihypertensives at home medications. c/w amlodipine 5 mg. Creatinine stable. Cannot add beta-bigg as patient is having heart racing 55. Continue with hydralazine as needed for blood pressure control. No dose given till now. Continue other home psych medications for anxiety/depression. Full code Lovenox for DVT prophylaxis. We will continue to monitor hemoglobin. Dysphagia diet. Continue one-to-one sitter for suicidal ideation on admission. Home o 2 eval as we plan for d/c. No O2 as home. Pt will need bipap QHS At baseline is bed bound, no PT eval. dc sandy Attestations Medical Necessity Statement*: Needs hospitalization for management of resolving AMS Coding Level of Care Code Acute Mechanical Designer for Chg Fwd Diagnoses Altered mental status R40.1 Altered mental status type: stupor Alcoholic intoxication F10.921 Complication of substance-induced condition: with delirium Respiratory failure J96.90 Aspiration into lower respiratory tract T17.800A Positive occult stool blood test R19.5 Suicidal ideation R45.851
--- NOTE | 2019-04-10 16:43 | PC.SOCIAL ---
Updated IMM Updated pt on Pg 2 IMM. No questions voiced. Provided pt a copy & left on pt's bedside table. Signed, dated, & timed original in chart.
[2019-04-10] MEDS: nystatin 100,000 unit/mL UDC 5 mL 500000 UNIT PO (21:43)
[2019-04-10] MEDS: finasteride 5 mg Tablet PO (21:44)
[2019-04-10] MEDS: divalproex ER 500 mg Tablet (24H) PO (21:44)
[2019-04-11] VITALS (18 sets, daily range): BP systolic 85–139; BP diastolic 49–83; PULSE 70–119; RESP 14–30; TEMP 36.4–36.6; O2SAT 92–100; BMI 36.4
--- NOTE | 2019-04-11 00:02 | PC.NURSE ---
pt awake , disassembled bipap mask refuses bipap tx at this time. pt states he tired of all of this. vss per cm. provided pt c sandwich tray a coke and a sprite per his request. 1 mg ativan given ivp to assist c calming. harvinder vargas.
[2019-04-11] MEDS: enoxaparin 40 mg/0.4 mL Syringe SUBCUT (02:30)
--- NOTE | 2019-04-11 03:21 | PC.RESP ---
changed due to patient cant tolerate, will continue to monitor
[2019-04-11 05:24] LABS: Basophils % 0.2 %; Hematocrit 44.9 % (42.0-52.0); Hemoglobin 14.5 g/dL (11.7-16.6); Lymphocytes # 0.9 10^3/uL (0.8-4.8); Mean Corpuscular HGB Conc 32.3 g/dL (30.0-36.0); Mean Corpuscular Hemoglobin 31.8 pg (28.0-34.0); Mean Corpuscular Volume 98.5 fL (80-94); Mean Platelet Volume 11.2 fL (7.4-10.4); Monocytes # 0.7 10^3/uL (0.2-0.9); Monocytes % 11.2 %; Neutrophils # 4.9 10^3/uL (1.8-7.7); Neutrophils % 74.5 %; Nucleated Red Blood Cells % 0 %; Platelet Count 282 10^3/cmm (130-400); Red Blood Count 4.56 10^6/uL (4.1-5.3); Red Cell Distribution Width 14.6 % (12.1-15.1); White Blood Count 6.6 10^3/uL (4.0-10.0)
--- NOTE | 2019-04-11 05:27 | PC.RESP ---
patient stated he cant wear his bipap any longer
[2019-04-11] MEDS: piperacillin-tazobactam 3.375 GM in sodium chloride 0.9% (plus) 50 ML IV (05:39)
[2019-04-11 05:41] LABS: Alanine Aminotransferase 34 U/L (0-41); Albumin Level 3.5 g/dL (3.5-5.2); Alkaline Phosphatase 78 IU/L (40-130); Anion Gap 15.7 (5-19); Aspartate Amino Transferase 31 U/L (0-40); Blood Urea Nitrogen 24 mg/dL (8-23); Calcium 9.3 mg/Dl (8.8-10.2); Carbon Dioxide 27 mmol/L (22-29); Chloride 98 mmol/L (98-107); Globulin 2.7 g/dL (1.3-4.6); Glomerular Filtration Rate 165.4 mL/min (90-130); Glucose 137 mg/dL (74-106); Potassium 3.7 mmol/L (3.5-5.1); Sodium 137 mmol/L (136-145); Total Bilirubin 0.6 mg/dL (0.15-1.2); Total Protein 6.2 g/dL (6.6-8.7)
[2019-04-11] MEDS: ipratropium-albuterol 3 mL Neb INHALATION ×3 (08:26→20:05)
[2019-04-11] MEDS: folic acid 1 mg Tablet PO (08:38)
[2019-04-11] MEDS: aspirin 81 mg Chew Tablet PO (08:38)
[2019-04-11] MEDS: doxazosin 4 mg Tablet 8 MG PO (08:38)
[2019-04-11] MEDS: amlodipine 5 mg Tablet PO (08:38)
[2019-04-11] MEDS: thiamine 100 mg Tablet PO (08:39)
[2019-04-11] MEDS: sennosides-docusate Tablet 1 TAB PO ×2 (08:39→18:34)
[2019-04-11] MEDS: gabapentin 100 mg Capsule 150 MG PO (08:39)
[2019-04-11] MEDS: multivitamin therapeutic Tablet 1 TAB PO (08:39)
[2019-04-11] MEDS: chlordiazePOXIDE 25 mg Capsule PO (08:39)
[2019-04-11] MEDS: buPROPion XL (24 HR) 300 mg Tablet PO (08:39)
[2019-04-11] MEDS: baclofen 10 mg Tablet PO ×2 (08:39→18:34)
[2019-04-11] MEDS: levothyroxine 150 mcg Tablet PO (08:39)
[2019-04-11] MEDS: pantoprazole DR 40 mg Tablet PO ×2 (09:58→18:34)
[2019-04-11] MEDS: FUROsemide 10 mg/mL SDV 4mL 40 MG IVP (09:58)
--- NOTE | 2019-04-11 10:00 | PC.NURSE ---
Held 0900 dose of IV furosemide in order to verify MD wanted to continue with IV dosing. MD stated to give this am dose as the last IV dose and patient will bechanged to po dosing prior to discharge later today.
--- NOTE | 2019-04-11 12:03 | PC.CHAP ---
Pastoral Care Encounter/Spiritual Assessment Type of Contact [] Declined hand inserter operator visit [] Patient/Family/Request visit [] Outpatient visit [x] Follow-up visit [] Physician referral [] Code/Alert [x] Routine visit [] Staff referral [] Actively dying [x] Patient sleeping [] Family support [] [] Out of room [] Palliative care [] [] Receiving care in room [] Pre-surgical visit [] Trauma [] Long length of stay [x] ICU visit [] Other: Relational/Emotional Strength [] Patient feels connected with others/family/visitors/staff [] Distress [] Loneliness/isolation [] Abandonment Spirituality of Patient [] Person of Rhea [] Attends Adventist of their Rhea [] Believes in Prayer [] Reads Bible or Orthodoxy materials [] There are Spiritual issues to be addressed Staff Writer Interventions [] Prayer [] Active listening [] Non-anxious presence [] Spiritual/emotional support [] Crisis/trauma care [] Spiritual counseling [] Bereavement support [] Provided bereavement packet [] Provided Bible/devotional materials [] Provided toy/stuffed animal, coloring book to patient or family member [] Completed spiritual assessment [] Provided Communion [] Anointing/[place] [] Salvation [] Other: Impact on Illness or Injury [] Angry [] Fearful [] Anxious [] Often cries [] Exhaustion [] Unable to work [] Unable to attend mandaen [] Unable to walk/stand [] Unable to read [] Unable to drive [] Unable to eat/drink [] Unable to sleep [] Unable to be with family [] Other: Summary patient was sleeping. Staff Writer will do follow up visit. Time spent with patient 5min.
[2019-04-11] MEDS: escitalopram 10 mg Tablet PO (12:27)
--- NOTE | 2019-04-11 18:08 | PM.PN ---
Subjective Subjective: Interval history: No acute events overnight. Alot more awake and eating breakfast. This morning on evaluation patient is lying comfortably in bed on 4 L NC. Denies any N/V, headache, palpitations, CP, abd pain, states his breathing is better.Sandy d/bharti yesterday. Denies any suicidal and homicidal ideations. Medications: Reviewed: Yes Vitals/I&O/Wt Last Vital Signs Temp 97.6 F 04/11/19 10:00 Pulse 70 04/11/19 16:00 Resp 16 04/11/19 16:00 BP 106/56 04/11/19 16:00 Pulse Ox 99 04/11/19 16:00 04/11/19 04/11/19 04/11/19 06:59 14:59 22:59 Intake Total 650 / 1710 Output Total 3000 / 5960 Balance -2350 / -4250 Weight last 48 hrs Weight 132.251 kg Weight 132.251 kg Physical Exam Narrative: EXAM NARRATIVE: General: No acute distress, AO x3, lethargic HEENT: PERRLA, pupils bilaterally equal and reactive Chest: Normal vesicular breath sounds, bilateral fine crackles lower zones,better than yesterday, equal good air entry bilaterally, on NC. CVS: S1-S2 regular, no murmurs, no tachycardia, no gallops, no rubs Abdomen: Soft, nontender, no organomegaly, bowel sounds present, obese Neuro: No focal deficits, no facial deformity, AO x3, power 5/5 in all limbs Urinary Catheter Management^: Sandy: Cath Placed During This Visit: no A&P Assessment and plan (1) Altered mental status: Status: Acute Qualifiers: Altered mental status type: stupor Qualified Code(s): R40.1 - Stupor Code(s): R41.82 - Altered mental status, unspecified (2) Alcoholic intoxication: Status: Acute Qualifiers: Complication of substance-induced condition: with delirium Qualified Code(s): F10.921 - Alcohol use, unspecified with intoxication delirium Code(s): F10.929 - Alcohol use, unspecified with intoxication, unspecified (3) Respiratory failure: Status: Acute Code(s): J96.90 - Respiratory failure, unspecified, unspecified whether with hypoxia or hypercapnia (4) Aspiration into lower respiratory tract: Status: Acute Code(s): T17.800A - Unspecified foreign body in other parts of respiratory tract causing asphyxiation, initial encounter (5) Positive occult stool blood test: Status: Acute Code(s): R19.5 - Other fecal abnormalities (6) Suicidal ideation: Status: Acute Code(s): R45.851 - Suicidal ideations Additional A&P Information Additional A&P Information: Altered mental status because of mouthwash toxicity taken because of suicidal ideations: Altered mental status is improved. At baseline Off precedex for 2 days. Already recieved Librium today. Will d/c off now. Try to avoid Ativan. Will d/c ativan Psych evaluation appreciated. No active suicidal or homicidal ideations as per psych eval. Pt has good insight. C/w lexapro. Reviewed home meds. Will c/w depakote at current dose on d/c. C/o lehg cramps. Will increase gabapentin to home dose of 300 mg BID. Seizure precautions, fall precautions per shift. Acute hypoxic respiratory failure most likely due to aspiration pneumonia along with CHF: proBNP elevated today. ECHO result appreciated. On exam patient does look like in fluid overload. Already recieved lasix. Will make in QD for now. Will change to PO for tomorrow. Daily weights Strict intake and output. Zosyn d/bharti today. 7 day course complete. Diet as per Swallow eval. Occult blood positive: Hemoglobin stable. Continue with Protonix 40 mg IV twice daily. Restart aspirin.Will monitor hb for now. Hypertension: BP better controlled after adding amlo No antihypertensives at home medications. c/w amlodipine 5 mg. Creatinine stable. Cannot add beta-bigg as patient is having heart racing 55. Continue with hydralazine as needed for blood pressure control. No dose given till now. Reviewed home psych medications for anxiety/depression and adjusted for his mentation. Full code Lovenox for DVT prophylaxis. We will continue to monitor hemoglobin. Dysphagia diet. Will d/c one-to-one sitter as no active suicidal ideation. Home o 2 eval as we plan for d/c. No O2 as home. Pt will need bipap QHS At baseline is bed bound, no PT eval. azucena sandy Attestations Medical Necessity Statement*: continued hospitalization for AMS Time Spent in Patient Care: Greater than 35 minutes Coding Level of Care Code Acute Assembly Line Machine Operator for Chg Fwd Diagnoses Altered mental status R40.1 Altered mental status type: stupor Alcoholic intoxication F10.921 Complication of substance-induced condition: with delirium Respiratory failure J96.90 Aspiration into lower respiratory tract T17.800A Positive occult stool blood test R19.5 Suicidal ideation R45.851
[2019-04-11] MEDS: gabapentin 100 mg Capsule 300 MG PO (18:33)
[2019-04-11] MEDS: divalproex ER 500 mg Tablet (24H) PO (21:12)
[2019-04-11] MEDS: finasteride 5 mg Tablet PO (21:13)
[2019-04-11] MEDS: nystatin 100,000 unit/mL UDC 5 mL 500000 UNIT PO (21:13)
--- NOTE | 2019-04-11 21:56 | PC.RESP ---
patient refused to wear bipap, he stated he is going home tomorrow and the doctor told him he didnt have to wear the bipap
[2019-04-12] VITALS (14 sets, daily range): BP systolic 106–155; BP diastolic 58–88; PULSE 69–99; RESP 13–20; TEMP 36.8–36.9; O2SAT 90–98; BMI 35.4
[2019-04-12] MEDS: acetaminophen 325 mg Tablet 650 MG PO (02:33)
[2019-04-12 05:20] LABS: Basophils % 0.3 %; Eosinophils # 0.1 10^3/uL (0.0-0.8); Eosinophils % 0.7 %; Hematocrit 41.4 % (42.0-52.0); Hemoglobin 13.3 g/dL (11.7-16.6); Lymphocytes # 2.1 10^3/uL (0.8-4.8); Lymphocytes % 29.7 %; Mean Corpuscular HGB Conc 32.1 g/dL (30.0-36.0); Mean Corpuscular Hemoglobin 30.7 pg (28.0-34.0); Mean Corpuscular Volume 95.6 fL (80-94); Mean Platelet Volume 11.3 fL (7.4-10.4); Monocytes # 1.2 10^3/uL (0.2-0.9); Monocytes % 17.2 %; Neutrophils # 3.6 10^3/uL (1.8-7.7); Neutrophils % 51.3 %; Nucleated Red Blood Cells % 0 %; Platelet Count 275 10^3/cmm (130-400); Red Blood Count 4.33 10^6/uL (4.1-5.3); Red Cell Distribution Width 14.5 % (12.1-15.1); White Blood Count 7.1 10^3/uL (4.0-10.0)
[2019-04-12 05:39] LABS: Alanine Aminotransferase 32 U/L (0-41); Albumin Level 3.5 g/dL (3.5-5.2); Alkaline Phosphatase 70 IU/L (40-130); Anion Gap 11.5 (5-19); Aspartate Amino Transferase 20 U/L (0-40); Blood Urea Nitrogen 30 mg/dL (8-23); Calcium 9.2 mg/Dl (8.8-10.2); Carbon Dioxide 31 mmol/L (22-29); Chloride 98 mmol/L (98-107); Globulin 2.4 g/dL (1.3-4.6); Glomerular Filtration Rate 165.4 mL/min (90-130); Glucose 120 mg/dL (74-106); Potassium 3.5 mmol/L (3.5-5.1); Sodium 137 mmol/L (136-145); Total Bilirubin 0.5 mg/dL (0.15-1.2); Total Protein 5.9 g/dL (6.6-8.7)
[2019-04-12] MEDS: enoxaparin 40 mg/0.4 mL Syringe SUBCUT (05:58)
[2019-04-12] MEDS: ipratropium-albuterol 3 mL Neb INHALATION ×2 (07:58→13:53)
--- NOTE | 2019-04-12 08:01 | PC.RESP ---
id#[email or web address] on standby
[2019-04-12] MEDS: pantoprazole DR 40 mg Tablet PO (08:07)
[2019-04-12] MEDS: escitalopram 10 mg Tablet PO (08:07)
[2019-04-12] MEDS: folic acid 1 mg Tablet PO (08:07)
[2019-04-12] MEDS: amlodipine 5 mg Tablet PO (08:07)
[2019-04-12] MEDS: levothyroxine 150 mcg Tablet PO (08:07)
[2019-04-12] MEDS: doxazosin 4 mg Tablet 8 MG PO (08:07)
[2019-04-12] MEDS: aspirin 81 mg Chew Tablet PO (08:07)
[2019-04-12] MEDS: gabapentin 100 mg Capsule 300 MG PO (08:07)
[2019-04-12] MEDS: buPROPion XL (24 HR) 300 mg Tablet PO (08:07)
[2019-04-12] MEDS: FUROsemide 10 mg/mL SDV 4mL 40 MG IVP (08:08)
[2019-04-12] MEDS: nystatin 100,000 unit/mL UDC 5 mL 500000 UNIT PO ×2 (08:08→12:39)
[2019-04-12] MEDS: baclofen 10 mg Tablet PO (08:08)
[2019-04-12] MEDS: sennosides-docusate Tablet 1 TAB PO (08:08)
[2019-04-12] MEDS: thiamine 100 mg Tablet PO (08:08)
[2019-04-12] MEDS: multivitamin therapeutic Tablet 1 TAB PO (08:08)
--- NOTE | 2019-04-12 13:33 | PM.DCS ---
Discharge Providers Date of Admission: 04/03/19 23:59 Date of Discharge: 04/12/19 Attending Provider at Admission: Hemal Mcclelland MD Attending Provider at Discharge: Solomon Butcher MD Consults: Dr. Kemal Chawla?psychiatric Primary Care Provider: Deloris Echavarria DO Diagnoses at Discharge Discharge Diagnosis (1) Altered mental status: Status: Acute Qualifiers: Altered mental status type: stupor Qualified Code(s): R40.1 - Stupor (2) Alcoholic intoxication: Status: Acute Qualifiers: Complication of substance-induced condition: with delirium Qualified Code(s): F10.921 - Alcohol use, unspecified with intoxication delirium (3) Respiratory failure: Status: Acute (4) Aspiration into lower respiratory tract: Status: Acute (5) Positive occult stool blood test: Status: Acute (6) Suicidal ideation: Status: Acute Reason for Visit Reason for Visit: Reason For Visit: ALTERED LOC/ DRANK A BOTTLE OF MOUTH WASH Hospital Course Discharge Summary: This is a 69-year-old gentleman past medical history of COPD, GERD, hypertension, hypothyroidism, morbid obesity, spastic paralysis and spinal stenosis who is bedbound was brought in from [facility] after he was found agitated, altered in his room with 3 bottles of Listerine by his bedside. In the ER patient was found to be hypoxic and not maintaining his airway so was intubated. Patient was admitted to the ICU because of hypoxic respiratory failure due to intoxication. He was started on Precedex drip to help with withdrawal symptoms and was weaned eventually extubated on April 08. His chest imaging was concerning for right middle lobe consolidation most likely from aspiration when he was altered. His hospital course was complicated by occasional agitation which was most likely due to withdrawal symptoms while he was in getting over his intoxication. He was continued on IV Zosyn for aspiration pneumonia and finished a course of 7 days. His home medications were reconciled and he was found to be on multiple antidepressants. Psychiatric was consulted in view of suicidal ideations at the start and he was cleared by psychiatric team. Patient states he does not have any suicidal or homicidal ideations at present and he was 'being stupid' and he would not do it again. Patient was seen by speech therapist and his diet was advanced as per the recommendations to dysphagia 3 diet. Patient has tolerated the recommended diet well. At present patient is hemodynamically stable, in good spirits, does not have any suicidal or homicidal ideations, has been cleared by psychiatric team and is maintaining more than 92% saturation on 3 L nasal cannula. Physical Exam Narrative: EXAM NARRATIVE: General: No acute distress, AO x3, HEENT: PERRLA, pupils bilaterally equal and reactive Chest: Normal vesicular breath sounds, bilateral fine crackles lower zones,better than yesterday, equal good air entry bilaterally, on NC. CVS: S1-S2 regular, no murmurs, no tachycardia, no gallops, no rubs Abdomen: Soft, nontender, no organomegaly, bowel sounds present, obese Neuro: No focal deficits, no facial deformity, AO x3, power 5/5 in all limbs Urinary Catheter Management^: Santos: Cath Placed During This Visit: no Discharge Data Data Completed and Pending: Completed Studies During Hospitalization Category Date Time Status CT cervical spin wo con* [id number] Rout ine Cat Scan 04/04/19 10:[address] head wo con* 7 0450 Routine Cat Scan 04/04/19 10:10 Completed XR chest 1V [id number] Routine Exams 04/04/19 10:53 Completed XR chest 1V [id number] Routine Exams 04/09/19 08:31 Completed XR chest 1V eddie ble [id number] Routine Exams 04/05/19 09:59 Completed XR chest 1V eddie ble [id number] Stat Exams 04/04/19 00:57 Completed XR chest 1V eddie ble [id number] Urgent Exams 04/03/19 21:24 Completed CV echo complete* [id number] Routine Ultrasound 04/09/19 23:37 [place] [id number] Urgent Ultrasound 04/09/19 14:55 Completed Labs from last 24 hours 04/12/19 04/12/19 04:01 04:01 WBC 7.1 RBC 4.33 Hgb 13.3 Hct 41.4 L MCV 95.6 H MCH 30.7 MCHC 32.1 RDW 14.5 Plt Count 275 MPV 11.3 H Neut % (Auto) 51.3 Lymph % (Auto) 29.7 [place] % (Auto) 17.2 Eos % (Auto) 0.7 Baso % (Auto) 0.3 Neut # (Auto) 3.6 Lymph # (Auto) 2.1 [place] # (Auto) 1.2 H Eos # (Auto) 0.1 Baso # (Auto) 0.0 Nucleated RBC % (a uto) 0 Nucleated RBCs # 0.0 Sodium 137 Potassium 3.5 Chloride 98 Carbon Dioxide 31 H Anion Gap 11.5 BUN 30 H Creatinine 0.5 L GFR Calculation 165.4 H Glucose 120 H Calcium 9.2 Total Bilirubin 0.5 AST 20 ALT 32 Alkaline Phosphata se 70 Total Protein 5.9 L Albumin 3.5 Globulin 2.4 Vitals: Last Vital Signs Temp 98.4 F 04/12/19 10:00 Pulse 81 04/12/19 12:00 Resp 13 04/12/19 12:00 BP 118/76 04/12/19 12:00 Pulse Ox 96 04/12/19 12:00 Discharge Plan Discharge Patient Disposition: Xfer SNF Condition: Stable Prescriptions: New nystatin 100,000 unit/mL Suspension 500,000 unit PO QID 7 Days Qty: 28 RF: 0 amlodipine 5 mg Tablet 5 mg PO DAILY Qty: 30 RF: 0 baclofen 10 mg Tablet 10 mg PO BID Qty: 30 RF: 0 pantoprazole 40 mg Tablet,Delayed Release (Dr/Ec) 40 mg PO BID 14 Days Qty: 28 RF: 0 divalproex 500 mg Tablet Extended Release 24 Hr 500 mg PO BEDTIME Qty: 30 RF: 0 levothyroxine 150 mcg Tablet 150 mcg PO DAILY Qty: 30 RF: 0 doxazosin 4 mg Tablet 8 mg PO DAILY Qty: 30 RF: 0 aspirin 81 mg Tablet,Chewable 81 mg PO DAILY Qty: 30 RF: 0 gabapentin 100 mg Capsule 300 mg PO BID Qty: 60 RF: 0 finasteride 5 mg Tablet 5 mg PO BEDTIME Qty: 30 RF: 0 escitalopram oxalate 10 mg Tablet 10 mg PO DAILY Qty: 30 RF: 0 bupropion HCl 300 mg Tablet Extended Release 24 Hr 300 mg PO DAILY Qty: 30 RF: 0 Vitamin B-1 (mononitrate) 100 mg Tablet 100 mg PO DAILY Qty: 30 RF: 0 Thera 400 mcg Tablet 1 tab PO DAILY Qty: 30 RF: 0 Medrol (Dung) 4 mg tablets,dose pack See Rx Instructions .ROUTE .COMPLEX Qty: 21 RF: 0 Discharge Orders: Discharge Order (Routine); Ordered 04/12/19 Ordered By: Solomon Butcher Referrals: [facility] [Outside] Deloris Echavarria DO [Primary Care Provider] - Kemal Chawla MD [Physician] - 2 weeks Discharge Diet: Dysphagia III diet Discharge Activity: Resume usual activity Patient Instructions: Depression (DC), Chronic Dysphagia (DC) Activity Restrictions/Additional Instructions: Diet has been modified as per the swallow evaluation to dysphagia 3 diet. Patient is saturating over 92% on 3 L nasal cannula. Titrate oxygen keeping saturation over 90%. Psychiatric medications have been reconciled. Patient to finish Medrol pack as directed. Discharge Attestations Time Spent in Discharge Care*: greater than 30 min Specific Discharge Activities: Specific discharge activities: discussing with case therapist/social workers/dc planners Status at Discharge: Cognitive status at discharge: cognitively intact, Behavioral status at discharge: cooperative, Functional status at discharge: bed bound Overall status at discharge: patient is back to baseline Quality Metrics Clinical Quality Measures During this hospital stay, did patient experience: None Coding Level of Care Code Acute Market Reporter for g Fwd Diagnoses Altered mental status R40.1 Altered mental status type: stupor Alcoholic intoxication F10.921 Complication of substance-induced condition: with delirium Respiratory failure J96.90 Aspiration into lower respiratory tract T17.800A Positive occult stool blood test R19.5 Suicidal ideation R45.851
== END 2019-04-12 16:45 | disposition skilled nursing facility (03) | DRG 917 ==
LOC: ER 22:17 → ICU 04-04 00:17
PROVIDERS: Student in an Organized Health Care Education/Training Program; Admitting Provider Internal Medicine; Emergency Provider Family Medicine; PCP Family Medicine; Visit Provider Student in an Organized Health Care Education/Training Program
DX: T49.6X2A Poisoning by otorhinolaryngological drugs and preparations, intentional self-harm, initial encounter (principal); L89.623 Pressure ulcer of left heel, stage 3; J18.9 Pneumonia, unspecified organism; J96.01 Acute respiratory failure with hypoxia; J44.1 Chronic obstructive pulmonary disease with (acute) exacerbation; E87.1 Hypo-osmolality and hyponatremia; R45.851 Suicidal ideations; F02.81 Dementia in other diseases classified elsewhere, unspecified severity, with behavioral disturbance; F10.239 Alcohol dependence with withdrawal, unspecified; K21.9 Gastro-esophageal reflux disease without esophagitis; N40.0 Benign prostatic hyperplasia without lower urinary tract symptoms; I10 Essential (primary) hypertension; E03.9 Hypothyroidism, unspecified; Y95 Nosocomial condition; E66.01 Morbid (severe) obesity due to excess calories; Z68.35 Body mass index [BMI] 35.0-35.9, adult; F17.210 Nicotine dependence, cigarettes, uncomplicated; Y92.122 Bedroom in nursing home as the place of occurrence of the external cause; Z86.14 Personal history of Methicillin resistant Staphylococcus aureus infection; Y90.8 Blood alcohol level of 240 mg/100 ml or more; F41.8 Other specified anxiety disorders; G30.9 Alzheimer's disease, unspecified; F10.229 Alcohol dependence with intoxication, unspecified
CPT/HCPCS: 12345; 36415; 36600; 51702; 70450; 71045; 72125; 80051; 80053; 80307; 82271; 82374; 82803; 82810; 83605; 83880; 83930; 83986; 84443; 85025; 85378; 85610; 92523; 92610; 93005; 93306; 93970; 94002; 94003; 94640; 94660; 94799; 96372; 96375; 99281; A4216; C9113; J0330; J0360; J1650; J1940; J2060; J2543; J2704; J2920; J3010; J3490; J7030

== ENCOUNTER 2020-06-20 05:27 | Emergency (ER) | payer MEDICARE, MEDICAID, SELFPAY | END 2020-06-20 14:41 | PROVIDERS: Emergency Provider Family Medicine; PCP Family Medicine | DX: A41.9 Sepsis, unspecified organism (principal); J18.9 Pneumonia, unspecified organism; R06.03 Acute respiratory distress; J44.0 Chronic obstructive pulmonary disease with (acute) lower respiratory infection; I10 Essential (primary) hypertension; E03.9 Hypothyroidism, unspecified; E66.01 Morbid (severe) obesity due to excess calories; Z68.37 Body mass index [BMI] 37.0-37.9, adult; Z86.14 Personal history of Methicillin resistant Staphylococcus aureus infection; Z72.0 Tobacco use | CPT/HCPCS: 36415; 36600; 71045; 80051; 80053; 81003; 82330; 82550; 82805; 83735; 85025; 85378; 87040; 87635; 87641; 99285; J1956; J3490 ==

== ENCOUNTER 2020-06-20 11:12 | Inpatient (IN) | payer MEDICAID, SELFPAY ==
[2020-06-20] VITALS (52 sets, daily range): BP systolic 86–156; BP diastolic 51–100; PULSE 75–105; RESP 16–26; TEMP 36.3–39; O2SAT 79–100; BMI 32.5
--- NOTE | 2020-06-20 11:29 | XRR_ITS ---
PROCEDURE INFORMATION: Exam: XR Chest Exam date and time: 06/20/2020 11:30 AM Age: 70 years old Clinical indication: Cough and dyspnea; Additional info: Dyspnea/cough TECHNIQUE: Imaging protocol: XR of the chest Views: Frontal portable upright view of the chest. COMPARISON: CR XR chest 1V [id number] 04/09/2019 8:35 AM FINDINGS: Tubes, catheters and devices: EKG leads are present overlying the chest. Lungs: Improved right lower lung zone partial atelectasis. Central right lung zone airspace opacity. The pulmonary vasculature congestion has resolved. Resolved bilateral pulmonary air space opacities in the central and mid-lower lung zones. Pleural spaces: Reduced or resolved previous small right pleural effusion. Heart/Mediastinum: The heart is normal in size and contour. Mediastinum: Stable. Bones/joints: Stable. XR/XR chest 1V portable [id number] IMPRESSION: 1. Improved right lower lung zone partial atelectasis. 2. Reduced or resolved previous small right pleural effusion. 3. Central right lung zone airspace opacity. Pneumonitis is difficult to exclude. Clinical correlation is recommended. 4. Resolved pulmonary vascular congestion. 5. Resolved pulmonary edema.
[2020-06-20 11:45] LABS: Blood Gas Allen Test Pos; Blood Gas Operator Identificat CAK; Blood Gas Sample Site Radial, left; Blood Gas Sample Type Arterial; Ionized Calcium Level - ABG 1.2 mmol/L (1.1-1.4); Oxygen Device SIMPLE MASK; Potassium Level - ABG 4.2 mmol/L (3.5-5.0)
[2020-06-20 12:06] LABS: Basophils # 0.1 10^3/uL (0.0-0.1); Basophils % 0.3 %; Hematocrit 39.6 % (42.0-52.0); Hemoglobin 12.6 g/dL (11.7-16.6); Lymphocytes # 0.3 10^3/uL (0.8-4.8); Lymphocytes % 1.5 %; Mean Corpuscular HGB Conc 31.8 g/dL (30.0-36.0); Mean Corpuscular Hemoglobin 31.4 pg (28.0-34.0); Mean Corpuscular Volume 98.8 fL (80-94); Mean Platelet Volume 11.6 fL (7.4-10.4); Monocytes # 1.3 10^3/uL (0.2-0.9); Monocytes % 6.9 %; Neutrophils # 16.94 10^3/uL (1.8-7.7); Neutrophils % 90.7 %; Nucleated Red Blood Cells % 0 %; Platelet Count 211 10^3/cmm (130-400); Red Blood Count 4.01 10^6/uL (4.1-5.3); Red Cell Distribution Width 11.9 % (12.1-15.1); White Blood Count 18.7 10^3/uL (4.0-10.0)
[2020-06-20 12:31] LABS: Alanine Aminotransferase 33 U/L (0-41); Albumin Level 3.5 g/dL (3.5-5.2); Alkaline Phosphatase 83 IU/L (40-130); Anion Gap 11.3 (5-19); Aspartate Amino Transferase 41 U/L (0-40); Blood Urea Nitrogen 15 mg/dL (8-23); Calcium 8.9 mg/dL (8.5-10.5); Carbon Dioxide 32 mmol/L (22-29); Chloride 97 mmol/L (98-107); Creatine Phosphokinase 105 U/L (39-308); Globulin 3.2 g/dL (1.3-4.6); Glomerular Filtration Rate 164.9 mL/min (90-130); Glucose 82 mg/dL (65-115); Magnesium 1.9 mg/dL (1.7-2.3); Osmolality Calculated 282 mOsm/kg (285-295); Potassium 4.3 mmol/L (3.5-5.1); Sodium 136 mmol/L (136-145); Total Bilirubin 0.5 mg/dL (0.15-1.2); Total Protein 6.7 g/dL (6.6-8.7)
--- NOTE | 2020-06-20 12:32 | W.ED.GENADLT ---
HPI - General Adult General: Chief complaint: General Medical Stated complaint: LOW O2, INCREASED CONGESTION Time Seen by Provider: 06/20/20 11:23 History of Present Illness: HPI narrative: 70-year-old male presents emergency room via EMS complaining of cough shortness of breath hypoxia and fever. Is given several albuterol treatments this morning patient was noted this regulated this morning usually wears 2 L by nasal cannula he is up to 4 L and then a mask when he arrived here. He has had a productive cough he did start with a fever here after arrival as well. EMS reports and snf records reflect that patient had a Covid swab but he does not say what type of test was done. Onset (ago): day(s) Location: chest Severity: moderate Relieving factors: none Exacerbating factors: none Associated symptoms: Reports confusion, cough, decreased appetite, dyspnea, fevers/chills, malaise, short of breath and weakness; Deny chest pain, diaphoresis, headache(s), nausea, rash, palpitations, seizures, syncope or vomiting Review of Systems Const: Reports: malaise Card: Denies: chest pain, palpitations or syncope Resp: Reports: dyspnea GI: Denies: nausea or vomiting Skin/Breast: Denies: rash Neuro: Reports: confusion; Denies: headache(s) PFSH ED PFSH: Medical History BPH (benign prostatic hyperplasia) COPD (chronic obstructive pulmonary disease) GERD (gastroesophageal reflux disease) Hospital-acquired pneumonia Hypertension Hyponatremia Hypothyroidism Morbid obesity MRSA (methicillin resistant staph aureus) culture positive Neuropathy Pressure ulcer with abrasion, blister, partial thickness skin loss involving epidermis and/or dermis Radiculopathy Spastic paralysis Spinal stenosis Suicidal ideation Surgical History Surgical history unknown Family History Other Diabetes Hypertension Social History Smoking and tobacco status: light tobacco smoker Alcohol intake: former Physical Exam Const: GENERAL APPEARANCE: cooperative HENMT: COMMON NORMALS: normocephalic and atraumatic HEAD & SCALP: normocephalic and atraumatic Eye: COMMON NORMALS: Equal, round and reactive pupils present, EOMs intact bilaterally, conjunctivae normal and no scleral icterus CONJUNCTIVA: Yes conjunctivae normal PUPIL: Yes Equal, round and reactive pupils present Neck/C-Spine: COMMON NORMALS: no JVD Resp: EFFORT & INSPECTION: Yes tachypneic AUSCULTATION: wheezes and diminished lung sounds Cardio: COMMON NORMALS: no JVD, regular rate, regular rhythm and No murmurs present (Cardio) RATE: regular rate RHYTHM: regular rhythm GI: COMMON NORMALS: Soft to palpation and No hepatosplenomegaly present AUSCULTATION: Yes normoactive bowel sounds PALPATION: Yes Soft to palpation, No Tenderness to palpation present (GI), No Guarding due to palpation present (GI) and Yes No hepatosplenomegaly present Extremity: COMMON NORMALS: normal to inspection, capillary refill normal, no clubbing, cyanosis or edema, no calf tenderness and no pedal edema Skin: COMMON NORMALS: no rashes or lesions noted GENERAL SKIN EXAM: no rashes or lesions noted Course Vital Signs: Vital signs: Vital Signs Temperature 97.7 F 06/23/20 15:21 Pulse Rate 71 06/23/20 15:21 Respiratory Rate 16 06/23/20 17:39 Blood Pressure 145/80 06/23/20 15:21 Pulse Oximetry 97 06/23/20 15:21 MDM - General Adult MDM Narrative: Medical decision making narrative: acute pneumonia with sepsis and resp distress. orders written, discussed with hospitalist, Lab Data: Labs: Lab Results 06/20/20 06/20/20 06/20/20 Range/Units 11:32 11:45 11:45 WBC 18.7 H (4.0-10.0) 10^3/ uL RBC 4.01 L (4.1-5.3) 10^6/u L Hgb 12.6 (11.7-16.6) g/dL Hct 39.6 L (42.0-52.0) % MCV 98.8 H (80-94) fL MCH 31.4 (28.0-34.0) pg MCHC 31.8 (30.0-36.0) g/dL RDW 11.9 L (12.1-15.1) % Plt Count 211 (130-400) 10^3/c mm MPV 11.6 H (7.4-10.4) fL Neut % (Auto) 90.7 % Lymph % (Auto) 1.5 % [place] % (Auto) 6.9 % Eos % (Auto) 0.0 % Baso % (Auto) 0.3 % Neut # (Auto) 16.94 H (1.8-7.7) 10^3/u L Lymph # (Auto) 0.3 L (0.8-4.8) 10^3/u L [place] # (Auto) 1.3 H (0.2-0.9) 10^3/u L Eos # (Auto) 0.0 (0.0-0.8) 10^3/u L Baso # (Auto) 0.1 (0.0-0.1) 10^3/u L Nucleated RBC % (a uto) 0 % Nucleated RBCs # 0.0 /100WBC D-Dimer (0-0.59) ug/mIFE U Specimen Type Arterial Sample Site Radial, left ABG pH 7.44 (7.35-7.45) ABG pCO2 49.0 H (35-45) mmHg ABG pO2 96.6 (80.0-100.0) mmH g ABG HCO3 33.5 H (22-26) mmol/L ABG O2 Saturation 98.6 ABG Base Excess 8.1 H (-2.0-2.0) mmol/ L Ramon Test Pos A-a O2 Gradient (5-10) mmHg Hematocrit 38.4 L (42-52) % Hgb O2 Saturation > 100.0 H (95-100) % Carboxyhemoglobin 0.5 (0.4-20.1) %THgb Methemoglobin < 0.0 L (0.4-1.5) % Total Hemoglobin 12.5 L (14-18) g/dL Sodium 137.0 136 (131-143) mmol/L Potassium 4.2 4.3 (3.5-5.0) mmol/L Glucose 88.0 82 (70-115) mg/dL Ionized Calcium 1.2 (1.1-1.4) mmol/L O2 Delivery Device Simple mask O2 Liters/Min 10.0 % Social Work Specialist ID Cak Chloride 97 L (98-107) mmol/L Carbon Dioxide 32 H (22-29) mmol/L Anion Gap 11.3 (5-19) BUN 15 (8-23) mg/dL Creatinine 0.5 L (0.7-1.2) mg/dL GFR Calculation 164.9 H (90-130) mL/min Calculated Osmolal ity 282 L (285-295) mOsm/k g Calcium 8.9 (8.5-10.5) mg/dL Magnesium 1.9 (1.7-2.3) mg/dL Total Bilirubin 0.5 (0.15-1.2) mg/dL AST 41 H (0-40) U/L ALT 33 (0-41) U/L Alkaline Phosphata se 83 (40-130) IU/L Creatine Kinase 105 (39-308) U/L Total Protein 6.7 (6.6-8.7) g/dL Albumin 3.5 (3.5-5.2) g/dL Globulin 3.2 (1.3-4.6) g/dL Urine Color (Yellow) Urine Appearance (CLEAR) Urine pH (5-7) Ur Specific Gravit y (1.005-1.030) Urine Protein (Negative) Urine Glucose (UA) (Normal) Urine Ketones (Negative) Urine Blood (Negative) Urine Nitrate (Negative) Urine Bilirubin (Negative) Prot Sulfosalicyli c Acd (Negative) Urine Urobilinogen (Negative) mg/dL Ur Leukocyte Racquel ase (Negative) Nasal/Oral COVID-1 9 PCR 06/20/20 06/20/20 06/20/20 Range/Units 11:45 13:20 13:57 WBC (4.0-10.0) 10^3/ uL RBC (4.1-5.3) 10^6/u L Hgb (11.7-16.6) g/dL Hct (42.0-52.0) % MCV (80-94) fL MCH (28.0-34.0) pg MCHC (30.0-36.0) g/dL RDW (12.1-15.1) % Plt Count (130-400) 10^3/c mm MPV (7.4-10.4) fL Neut % (Auto) % Lymph % (Auto) % [place] % (Auto) % Eos % (Auto) % Baso % (Auto) % Neut # (Auto) (1.8-7.7) 10^3/u L Lymph # (Auto) (0.8-4.8) 10^3/u L [place] # (Auto) (0.2-0.9) 10^3/u L Eos # (Auto) (0.0-0.8) 10^3/u L Baso # (Auto) (0.0-0.1) 10^3/u L Nucleated RBC % (a uto) % Nucleated RBCs # /100WBC D-Dimer 2.77 H (0-0.59) ug/mIFE U Specimen Type Sample Site ABG pH (7.35-7.45) ABG pCO2 (35-45) mmHg ABG pO2 (80.0-100.0) mmH g ABG HCO3 (22-26) mmol/L ABG O2 Saturation ABG Base Excess (-2.0-2.0) mmol/ L Ramon Test A-a O2 Gradient (5-10) mmHg Hematocrit (42-52) % Hgb O2 Saturation (95-100) % Carboxyhemoglobin (0.4-20.1) %THgb Methemoglobin (0.4-1.5) % Total Hemoglobin (14-18) g/dL Sodium (131-143) mmol/L Potassium (3.5-5.0) mmol/L Glucose (70-115) mg/dL Ionized Calcium (1.1-1.4) mmol/L O2 Delivery Device O2 Liters/Min % Social Work Specialist ID Chloride (98-107) mmol/L Carbon Dioxide (22-29) mmol/L Anion Gap (5-19) BUN (8-23) mg/dL Creatinine (0.7-1.2) mg/dL GFR Calculation (90-130) mL/min Calculated Osmolal ity (285-295) mOsm/k g Calcium (8.5-10.5) mg/dL Magnesium (1.7-2.3) mg/dL Total Bilirubin (0.15-1.2) mg/dL AST (0-40) U/L ALT (0-41) U/L Alkaline Phosphata se (40-130) IU/L Creatine Kinase (39-308) U/L Total Protein (6.6-8.7) g/dL Albumin (3.5-5.2) g/dL Globulin (1.3-4.6) g/dL Urine Color Yellow (Yellow) Urine Appearance Clear (CLEAR) Urine pH 8 H (5-7) Ur Specific Gravit y 1.005 (1.005-1.030) Urine Protein Neg (Negative) Urine Glucose (UA) Norm (Normal) Urine Ketones Negative (Negative) Urine Blood Neg (Negative) Urine Nitrate Negative (Negative) Urine Bilirubin Neg (Negative) Prot Sulfosalicyli c Acd Negative (Negative) Urine Urobilinogen 1 H (Negative) mg/dL Ur Leukocyte Racquel ase Negative (Negative) Nasal/Oral COVID-1 9 PCR Not detected Discharge Plan Discharge Patient Disposition: Admitted As Inpatient Admit Provider: Umesh Obrien Clinical Impression: Pneumonia, Sepsis Condition: Stable Discharge Diet: As Directed Discharge Activity: Resume usual activity Coding Level of Care Code ED Digital Retoucher for Sudarshan Varela
[2020-06-20 13:29] LABS: Add Urine Microscopic? NO
[2020-06-20] MEDS: aztreonam 2,000 MG in sodium chloride 0.9% (plus) 100 ML 200 MG IV ×2 (13:29→20:45)
[2020-06-20] MEDS: levofloxacin-dextrose 5 % 750 MG/150 ML PREMIX 100 MG IV (13:54)
[2020-06-20 14:06] LABS: Urine Appearance Clear (CLEAR); Urine Color Yellow (Yellow); pH Urine 8 (5-7)
[2020-06-20 14:07] LABS: Bilirubin Urine Neg (Negative); Blood Urine Neg (Negative); Glucose Urine UA Norm (Normal); Ketones Urine Negative (Negative); Leukocyte Esterase Urine Negative (Negative); Nitrate Urine Negative (Negative); Protein Urine Neg (Negative); Specific Gravity, Urine 1.005 (1.005-1.030); Sulfosalicylic Acid Urine Negative (Negative); Urobilinogen Urine 1 mg/dL (Negative)
[2020-06-20 15:02] LABS: ABG PH Result 7.44 (7.35-7.45); Arterial Blood Gas Hematocrit 38.4 % (42-52); Base Excess ABG 8.1 mmol/L (-2.0-2.0); HCO3 ABG 33.5 mmol/L (22-26); Oxygen Saturation ABG 98.6; PO2 ABG 96.6 mmHg (80.0-100.0)
[2020-06-20 15:03] LABS: Carboxyhemoglobin 0.5 %THgb (0.4-20.1); HGB O2 Sat > 100.0 % (95-100); Methemoglobin < 0.0 % (0.4-1.5); Total Hemoglobin 12.5 g/dL (14-18)
--- NOTE | 2020-06-20 15:49 | P.HP_ITS ---
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 The symptoms started 2 days ago and progressively got worse. The patient reports productive cough. Denies hemoptysis. Denies chest pain. The patient has fever in the emergency room. Chest x-ray reveals right middle lobe new infiltrate. However he also has right lower lobe infiltrate and pleural effusion which were present in his previous chest x-ray with some improvement today. The patient denies any history of choking or aspirations. Denies nausea or vomiting. No other significant complaints today. Review of Systems General: Reports: 10 or more systems reviewed and unremarkable except in HPI and below Medications/Allergies Home Medications Medication Instructions Recorded Confirmed Last Taken Type finasteride 5 mg PO BEDTIME #30 tab 04/12/19 06/20/20 06/19/20 Rx PNV cmb#95-ferrous fumarate-FA 1 tab PO DAILY@06/20/20 06/20/20 06/20/20 05:26 History [ Multivitamins] acetaminophen 650 mg PO Q4H PRN 06/20/20 06/20/20 06/04/20 History albuterol sulfate 2.5 mg INHALATION Q4H PRN 06/20/20 06/20/20 06/20/20 07:11 History amlodipine 5 mg PO DAILY@06/20/20 06/20/20 06/20/20 05:26 History aspirin 81 mg PO DAILY@06/20/20 06/20/20 06/20/20 05:26 History baclofen 10 mg PO TID@,,18 06/20/20 06/20/20 06/20/20 07:22 History benzonatate [Tessalon Perles] 100 mg PO TID PRN 06/20/20 06/20/20 06/20/20 02:38 History bupropion HCl 300 mg PO DAILY@06/20/20 06/20/20 06/20/20 05:26 History clonazepam 0.5 mg PO TID 06/20/20 06/20/20 06/20/20 05:26 History divalproex 500 mg PO BEDTIME 06/20/20 06/20/20 06/19/20 19:56 History doxazosin 8 mg PO DAILY@05 06/20/20 06/20/20 06/20/20 05:26 History doxycycline hyclate 100 mg PO BID 06/20/20 06/20/20 06/20/20 08:30 History escitalopram oxalate 10 mg PO DAILY@05 06/20/20 06/20/20 06/20/20 05:26 History gabapentin 300 mg PO TID@06,,06/20/20 06/20/20 06/20/20 05:26 History guaifenesin 600 mg PO BID PRN 06/20/20 06/20/20 Unknown History lanolin [id number].pet-ceres See Rx Instructions .ROUTE .COMPLEX 06/20/20 06/20/20 06/19/20 History [Eucerin] levothyroxine 150 mcg PO DAILY@06/20/20 06/20/20 06/20/20 05:26 History loperamide 4 mg PO Q3H PRN MDD 8 tabs 06/20/20 06/20/20 Unknown History menthol [Biofreeze (menthol)] 1 applic TOPICAL BID PRN 06/20/20 06/20/20 Unknown History menthol-zinc oxide [Calmoseptine] See Rx Instructions .ROUTE .COMPLEX 06/20/20 06/20/20 Unknown History miconazole nitrate [Jose See Rx Instructions .ROUTE .COMPLEX 06/20/20 06/20/20 Unknown History Antifungal] olanzapine 7.5 mg PO BEDTIME 06/20/20 06/20/20 06/19/20 History oxycodone-acetaminophen [Percocet] 1 tab PO Q4H 06/20/20 06/20/20 06/20/20 09:00 History sennosides-docusate sodium 1 tab-cap PO DAILY PRN 06/20/20 06/20/20 Unknown History [Senna-S] thiamine mononitrate (vit B1) 100 mg PO DAILY@05 06/20/20 06/20/20 06/20/20 05:26 History [Vitamin B-1 (mononitrate)] Allergies Allergy/AdvReac Type Severity Reaction Status Date / Time Penicillins Allergy Unknown Verified 06/20/20 12:47 PFSH Acute PFSH: Medical History (Updated 04/11/19 @ 11:01 by Kemal Chawla MD) BPH (benign prostatic hyperplasia) COPD (chronic obstructive pulmonary disease) GERD (gastroesophageal reflux disease) Hospital-acquired pneumonia Hypertension Hyponatremia Hypothyroidism Morbid obesity MRSA (methicillin resistant staph aureus) culture positive Neuropathy Pressure ulcer with abrasion, blister, partial thickness skin loss involving epidermis and/or dermis Radiculopathy Spastic paralysis Spinal stenosis Suicidal ideation Surgical History (Updated 04/04/19 @ 01:00 by Hemal Mcclelland MD) Surgical history unknown Family History (Updated 04/04/19 @ 00:59 by Hemal Mcclelland MD) Other Diabetes Hypertension Social History (Updated 04/04/19 @ 00:59 by Hemal Mcclelland MD) Smoking and tobacco status: light tobacco smoker Alcohol intake: former Vitals/I&O/Wt Last Vital Signs Temp 102.2 F H 06/20/20 11:29 Pulse 91 06/20/20 15:03 Resp 22 H 06/20/20 15:03 BP 117/56 06/20/20 15:03 Pulse Ox 90 06/20/20 15:03 06/20/20 06/20/20 06/20/20 06:59 14:59 22:59 Intake Total 250 / 250 Balance 250 / 250 Weight last 48 hrs Weight 117.934 kg Physical Exam Narrative: EXAM NARRATIVE: The patient is awake alert oriented. No acute distress. Mood and affect are appropriate. Responses are adequate. Distant upper airway crackles are heard. Skin is warm and dry. Moist mucous membranes. Eyes PERRL, extraocular muscles are intact Neck supple. No JVD Lungs bilateral crackles more pronounced on the right side. Mild tachypnea. No accessory muscle use. Heart S1, S2, regular Abdomen is obese, soft, nontender, bowel sounds are present Extremities trace pedal edema. No cyanosis or calf tenderness bilaterally. Data : 06/20/20 11:45 06/20/20 11:45 Other Labs: Laboratory Results WBC 18.7 10^3/uL (4.0-10.0) H 06/20/20 11:45 RBC 4.01 10^6/uL (4.1-5.3) L 06/20/20 11:45 Hgb 12.6 g/dL (11.7-16.6) 06/20/20 11:45 Hct 39.6 % (42.0-52.0) L 06/20/20 11:45 MCV 98.8 fL (80-94) H 06/20/20 11:45 MCH 31.4 pg (28.0-34.0) 06/20/20 11:45 MCHC 31.8 g/dL (30.0-36.0) 06/20/20 11:45 RDW 11.9 % (12.1-15.1) L 06/20/20 11:45 Plt Count 211 10^3/cmm (130-400) 06/20/20 11:45 MPV 11.6 fL (7.4-10.4) H 06/20/20 11:45 Neut % (Auto) 90.7 % 06/20/20 11:45 Lymph % (Auto) 1.5 % 06/20/20 11:45 Citrus % (Auto) 6.9 % 06/20/20 11:45 Eos % (Auto) 0.0 % 06/20/20 11:45 Baso % (Auto) 0.3 % 06/20/20 11:45 Neut # (Auto) 16.94 10^3/uL (1.8-7.7) H 06/20/20 11:45 Lymph # (Auto) 0.3 10^3/uL (0.8-4.8) L 06/20/20 11:45 Citrus # (Auto) 1.3 10^3/uL (0.2-0.9) H 06/20/20 11:45 Eos # (Auto) 0.0 10^3/uL (0.0-0.8) 06/20/20 11:45 Baso # (Auto) 0.1 10^3/uL (0.0-0.1) 06/20/20 11:45 Nucleated RBC % (auto) 0 % 06/20/20 11:45 Nucleated RBCs # 0.0 /100WBC 06/20/20 11:45 Specimen Type Arterial 06/20/20 11:32 Sample Site Radial, left 06/20/20 11:32 ABG pH 7.44 (7.35-7.45) 06/20/20 11:32 ABG pCO2 49.0 mmHg (35-45) H 06/20/20 11:32 ABG pO2 96.6 mmHg (80.0-100.0) 06/20/20 11:32 ABG HCO3 33.5 mmol/L (22-26) H 06/20/20 11:32 ABG O2 Saturation 98.6 06/20/20 11:32 ABG Base Excess 8.1 mmol/L (-2.0-2.0) H 06/20/20 11:32 Ramon Test Pos 06/20/20 11:32 A-a O2 Gradient mmHg (5-10) 06/20/20 11:32 Hematocrit 38.4 % (42-52) L 06/20/20 11:32 Hgb O2 Saturation > 100.0 % (95-100) H 06/20/20 11:32 Carboxyhemoglobin 0.5 %THgb (0.4-20.1) 06/20/20 11:32 Methemoglobin < 0.0 % (0.4-1.5) L 06/20/20 11:32 Total Hemoglobin 12.5 g/dL (14-18) L 06/20/20 11:32 Sodium 137.0 mmol/L (131-143) 06/20/20 11:32 Potassium 4.2 mmol/L (3.5-5.0) 06/20/20 11:32 Glucose 88.0 mg/dL (70-115) 06/20/20 11:32 Ionized Calcium 1.2 mmol/L (1.1-1.4) 06/20/20 11:32 O2 Delivery Device Simple mask 06/20/20 11:32 O2 Liters/Min 10.0 % 06/20/20 11:32 Photovoltaic Solar Cell Designer ID Cak 06/20/20 11:32 Sodium 136 mmol/L (136-145) 06/20/20 11:45 Potassium 4.3 mmol/L (3.5-5.1) 06/20/20 11:45 Chloride 97 mmol/L (98-107) L 06/20/20 11:45 Carbon Dioxide 32 mmol/L (22-29) H 06/20/20 11:45 Anion Gap 11.3 (5-19) 06/20/20 11:45 BUN 15 mg/dL (8-23) 06/20/20 11:45 Creatinine 0.5 mg/dL (0.7-1.2) L 06/20/20 11:45 GFR Calculation 164.9 mL/min (90-130) H 06/20/20 11:45 Glucose 82 mg/dL (65-115) 06/20/20 11:45 Calculated Osmolality 282 mOsm/kg (285-295) L 06/20/20 11:45 Calcium 8.9 mg/dL (8.5-10.5) 06/20/20 11:45 Magnesium 1.9 mg/dL (1.7-2.3) 06/20/20 11:45 Total Bilirubin 0.5 mg/dL (0.15-1.2) 06/20/20 11:45 AST 41 U/L (0-40) H 06/20/20 11:45 ALT 33 U/L (0-41) 06/20/20 11:45 Alkaline Phosphatase 83 IU/L (40-130) 06/20/20 11:45 Creatine Kinase 105 U/L (39-308) 06/20/20 11:45 Total Protein 6.7 g/dL (6.6-8.7) 06/20/20 11:45 Albumin 3.5 g/dL (3.5-5.2) 06/20/20 11:45 Globulin 3.2 g/dL (1.3-4.6) 06/20/20 11:45 Urine Color Yellow (Yellow) 06/20/20 13:20 Urine Appearance Clear (CLEAR) 06/20/20 13:20 Urine pH 8 (5-7) H 06/20/20 13:20 Ur Specific [place] 1.005 (1.005-1.030) 06/20/20 13:20 Urine Protein Neg (Negative) 06/20/20 13:20 Urine Glucose (UA) Norm (Normal) 06/20/20 13:20 Urine Ketones Negative (Negative) 06/20/20 13:20 Urine Blood Neg (Negative) 06/20/20 13:20 Urine Nitrate Negative (Negative) 06/20/20 13:20 Urine Bilirubin Neg (Negative) 03/23/21 13:20 Prot Sulfosalicylic Acd Negative (Negative) 06/20/20 13:20 Urine Urobilinogen 1 mg/dL (Negative) H 06/20/20 13:20 Ur Leukocyte Esterase Negative (Negative) 06/20/20 13:20 Impressions Chest X-Ray 06/20/20 11:29 IMPRESSION: 1. Improved right lower lung zone partial atelectasis. 2. Reduced or resolved previous small right pleural effusion. 3. Central right lung zone airspace opacity. Pneumonitis is difficult to exclude. Clinical correlation is recommended. 4. Resolved pulmonary vascular congestion. 5. Resolved pulmonary edema. Micro: Microbiology 06/20/20 12:35 Blood Culture - Preliminary Blood SPECIMEN COLLECTED 06/20/20 11:45 Blood Culture - Preliminary Blood SPECIMEN COLLECTED A&P Additional A&P Information Acute hypoxic respiratory failure secondary to pneumonia. Right middle lobe infiltrate. Aspiration and healthcare acquired pneumonia is suspected. The patient will go to ICU due to blood pressure being quite low side and hypoxia. Concern that the patient might require respiratory support if his condition worsens. Supplemental oxygen. Respiratory therapy consult. Incentive spirometry and flutter valve. Sepsis secondary to pneumonia. Will start on broad-spectrum antibiotics with coverage for anaerobes and MRSA due to his status. [facility] is [facility]. We will check his MRSA status. He is allergic to penicillins. We will start him on vancomycin per pharmacy dosing, will continue Levaquin and aztreonam. We will start de-escalating antibiotics as we gather more data from the tests that we ordered today including cultures. The patient will continue receiving respiratory treatments. Aspiration precautions. Bedbound status. Frequent repositioning, air bed, nursing protocols for pressure sore prevention. PT OT eval and treat. DVT prophylaxis. Lovenox. History of COPD. Currently no evidence of COPD acute exacerbation. Continue home medications. History of hypertension. We will hold his home blood pressure medications for now due to sepsis. History of GERD. We will continue his home medications. History of BPH. We will continue his home medications. We will also continue all his psychiatric medications. CODE STATUS. He wants to be full code. The plan of care was discussed with the patient. He request understanding and agreement. Attestations Medical Necessity Statement*: Patient is being admitted for hypoxia pneumonia. Requires supplemental oxygen and IV antibiotics. I expect that the patient will spend more than 2 midnights in the hospital. Coding Level of Care Code Acute Merchant Patroller for Sudarshan Varela
[2020-06-20 16:00] LABS: D Dimer 2.77 ug/mIFEU (0-0.59)
[2020-06-20] MEDS: sodium chloride 0.9% 1,000 ML 75 ML IV (16:27)
[2020-06-20] MEDS: vancomycin 1,500 MG/300 ML PIGGYBACK 200 MG IV (16:28)
[2020-06-20] MEDS: enoxaparin 40 mg/0.4 mL Syringe SUBCUT (16:28)
[2020-06-20] MEDS: morphine 4 mg/mL SDV 1 mL 2 MG IVP (17:11)
[2020-06-20] MEDS: HYDROcodone-acetaminophen 5-325 mg Tablet 1 TAB PO (18:34)
[2020-06-20] MEDS: baclofen 10 mg Tablet PO (18:34)
[2020-06-20] MEDS: miconazole 2% topical cream 28 gm TOPICAL (18:34)
[2020-06-20] MEDS: gabapentin 300 mg Capsule PO (18:34)
[2020-06-20] MEDS: divalproex DR 500 mg Tablet PO (20:43)
[2020-06-20] MEDS: finasteride 5 mg Tablet PO (20:43)
[2020-06-20] MEDS: OLANZapine 5 mg TABLET 7.5 MG PO (20:43)
[2020-06-20] MEDS: CLONazepam 0.5 mg Tablet PO (20:43)
[2020-06-21] VITALS (89 sets, daily range): BP systolic 92–182; BP diastolic 48–112; PULSE 59–102; RESP 13–26; TEMP 36.6–37.1; O2SAT 88–100
[2020-06-21] MEDS: oxyCODONE-APAP 10-325 mg Tablet 1 TAB PO ×4 (00:26→14:29)
[2020-06-21] MEDS: vancomycin 1,500 MG/300 ML PIGGYBACK 200 MG IV ×3 (00:27→15:09)
[2020-06-21] MEDS: albuterol 8 gm MDI 2 PUFF INHALATION ×2 (01:18→21:26)
[2020-06-21 03:55] LABS: Basophils # 0.1 10^3/uL (0.0-0.1); Basophils % 0.3 %; Hematocrit 36.5 % (42.0-52.0); Hemoglobin 11.7 g/dL (11.7-16.6); Lymphocytes # 1.1 10^3/uL (0.8-4.8); Lymphocytes % 5.3 %; Mean Corpuscular HGB Conc 32.1 g/dL (30.0-36.0); Mean Corpuscular Volume 99.7 fL (80-94); Mean Platelet Volume 11.6 fL (7.4-10.4); Monocytes # 1.5 10^3/uL (0.2-0.9); Monocytes % 7.6 %; Neutrophils # 17.26 10^3/uL (1.8-7.7); Neutrophils % 86.4 %; Nucleated Red Blood Cells % 0 %; Platelet Count 199 10^3/cmm (130-400); Red Blood Count 3.66 10^6/uL (4.1-5.3); Red Cell Distribution Width 12.5 % (12.1-15.1)
[2020-06-21 04:16] LABS: Alanine Aminotransferase 62 U/L (0-41); Albumin Level 3.4 g/dL (3.5-5.2); Alkaline Phosphatase 71 IU/L (40-130); Anion Gap 11.1 (5-19); Aspartate Amino Transferase 56 U/L (0-40); Blood Urea Nitrogen 12 mg/dL (8-23); Carbon Dioxide 31 mmol/L (22-29); Chloride 103 mmol/L (98-107); Globulin 2.8 g/dL (1.3-4.6); Glomerular Filtration Rate 213.3 mL/min (90-130); Glucose 95 mg/dL (65-115); Osmolality Calculated 292 mOsm/kg (285-295); Potassium 4.1 mmol/L (3.5-5.1); Sodium 141 mmol/L (136-145); Total Bilirubin 0.4 mg/dL (0.15-1.2); Total Protein 6.2 g/dL (6.6-8.7)
[2020-06-21 04:18] LABS: Magnesium 1.9 mg/dL (1.7-2.3)
[2020-06-21 04:25] LABS: Procalcitonin 1.52 ng/mL (0-0.5)
[2020-06-21] MEDS: aztreonam 2,000 MG in sodium chloride 0.9% (plus) 100 ML 200 MG IV ×2 (04:58→21:21)
[2020-06-21] MEDS: levothyroxine 75 mcg Tablet 150 MCG PO (04:59)
[2020-06-21] MEDS: aspirin 81 mg Chew Tablet PO (04:59)
[2020-06-21] MEDS: doxazosin 4 mg Tablet 8 MG PO (04:59)
[2020-06-21] MEDS: thiamine 100 mg Tablet PO (04:59)
[2020-06-21] MEDS: buPROPion XL (24 HR) 300 mg Tablet PO (04:59)
[2020-06-21] MEDS: baclofen 10 mg Tablet PO ×3 (04:59→17:31)
[2020-06-21] MEDS: escitalopram 10 mg Tablet PO (05:00)
[2020-06-21] MEDS: sodium chloride 0.9% 1,000 ML 75 ML IV ×2 (05:00→18:28)
[2020-06-21] MEDS: gabapentin 300 mg Capsule PO ×3 (05:00→17:31)
[2020-06-21 08:35] LABS: Vancomycin Trough 13.3 ug/mL (10-15)
[2020-06-21] MEDS: CLONazepam 0.5 mg Tablet PO ×3 (08:59→21:21)
[2020-06-21] MEDS: miconazole 2% topical cream 28 gm TOPICAL ×2 (09:24→17:31)
--- NOTE | 2020-06-21 09:31 | PC.CHAP ---
Pastoral Care Encounter/Spiritual Assessment Type of Contact [] Declined product info specialist visit [] Patient/Family/Request visit [] Outpatient visit [] Follow-up visit [] Physician referral [] Code/Alert [x] Routine visit [] Staff referral [] Actively dying [] Patient sleeping [x] Family support [] [] Out of room [] Palliative care [] [x] Receiving care in room [] Pre-surgical visit [] Trauma [] Long length of stay [x] ICU visit [] Other: Relational/Emotional Strength [] Patient feels connected with others/family/visitors/staff [] Distress [] Loneliness/isolation [] Abandonment Spirituality of Patient [] Person of Rhea [] Attends Moravian of their Rhea [] Believes in Prayer [] Reads Bible or Uatsdin materials [] There are Spiritual issues to be addressed Silk Screen Processor Interventions [x] Prayer [] Active listening [] Non-anxious presence [] Spiritual/emotional support [] Crisis/trauma care [] Spiritual counseling [] Bereavement support [] Provided bereavement packet [] Provided Bible/devotional materials [] Provided toy/stuffed animal, coloring book to patient or family member [] Provided Communion [] Anointing/[place] [] Salvation [x] Completed spiritual assessment [] Other: Impact on Illness or Injury [] Angry [] Fearful [] Anxious [] Often cries [] Exhaustion [] Unable to work [] Unable to attend anglican [] Unable to walk/stand [] Unable to read [] Unable to drive [] Unable to eat/drink [] Unable to sleep [] Unable to be with family [] Patient intubated [] Other: Summary Time spent with patient
[2020-06-21] MEDS: aztreonam 2,000 MG in sodium chloride 0.9% (plus) 100 ML 100 MG IV (12:09)
[2020-06-21] MEDS: levofloxacin-dextrose 5 % 750 MG/150 ML PREMIX 100 MG IV (13:46)
--- NOTE | 2020-06-21 14:41 | P.PN_ITS ---
Subjective Subjective: Interval history: The patient reports feeling better. Less shortness of breath. Cough is better. No chills. No nausea or vomiting. Medications: Reviewed: Yes Medication Review Details: Generic Name Dose Route Start Last Admin Trade Name Freq PRN Reason Stop Dose Admin Hydrocodone Bitart /Acetaminophen 1 tab 06/20/20 18:18 06/20/20 18:34 Hydrocodone-Acet aminophen 5-325 Mg Tablet PO 1 tab Q6H PRN Administration MODERATE PAIN Albuterol Sulfate 2 puff 06/21/20 01:04 06/21/20 01:18 Albuterol 8 Gm M di INHALATION 2 puff Q4H.RESPIRATORY P RN Administration SHORTNESS OF SAMANTHA TH Aspirin 81 mg 06/21/20 05:00 06/21/20 04:59 Aspirin 81 Mg Ch ew Tablet PO 81 mg DAILY@05 CARLY Administration Baclofen 10 mg 06/20/20 18:00 06/21/20 12:07 Baclofen 10 Mg T ablet PO 10 mg TID@06,,18 CARLY Administration Bupropion HCl 300 mg 06/21/20 05:00 06/21/20 04:59 Bupropion Xl (24 Hr) 300 Mg Tablet PO 300 mg DAILY@05 CARLY Administration Clonazepam 0.5 mg 06/20/20 21:00 06/21/20 08:59 Clonazepam 0.5 M g Tablet PO 0.5 mg TID CARLY Administration Divalproex Sodium 500 mg 06/20/20 21:00 06/20/20 20:[address] 50 0 Mg Tablet PO 500 mg BEDTIME CARLY Administration Doxazosin Mesylate 8 mg 06/21/20 05:00 06/21/20 04:59 Doxazosin 4 Mg T ablet PO 8 mg DAILY@05 CARLY Administration Enoxaparin Sodium 40 mg 06/20/20 16:00 06/20/20 16:28 Enoxaparin 40 Mg /0.4 Ml Syringe SUBCUT 40 mg Q24H CARLY Administration Escitalopram Oxala te 10 mg 06/21/20 05:00 06/21/20 05:00 Escitalopram 10 Mg Tablet PO 10 mg DAILY@05 CARLY Administration Finasteride 5 mg 06/20/20 21:00 06/20/20 20:43 Finasteride 5 Mg Tablet PO 5 mg BEDTIME CARLY Administration Gabapentin 300 mg 06/20/20 18:00 06/21/20 12:07 Gabapentin 300 M g Capsule PO 300 mg TID@, CARLY Administration Aztreonam 2,000 mg / Sodium 100 mls @ 200 mls /hr 06/20/20 21:30 06/21/20 13:12 Chloride IV Infused Q8H CARLY Infusion Protocol Levofloxacin/Dextr ose 750 mg in 150 mls @ 100 mls/hr 06/21/20 14:00 06/21/20 13:46 Levaquin-D5w IV 100 mls/hr Q24H CARLY Administration Protocol Vancomycin/PEG/NAD A/Lysine/Water 1,500 mg in 300 m ls @ 200 mls/hr 06/20/20 16:30 06/21/20 11:00 Vancocin IV Infused Q8H CARLY Infusion Sodium Chloride 1,000 mls @ 75 ml s/hr 06/20/20 15:45 06/21/20 05:00 Sodium Chloride 0.9% IV 75 mls/hr .[id number] CARLY Administration Levothyroxine Sodi um 150 mcg 06/21/20 05:00 06/21/20 04:59 Levothyroxine 75 Mcg Tablet PO 150 mcg DAILY@05 [facility] Administration Miconazole Nitrate 0 applic 06/20/20 18:00 06/21/20 09:24 Miconazole 2% To pical Cream 28 Gm TOPICAL 1 applic BID [facility] Administration Morphine Sulfate 2 mg 06/20/20 15:48 06/20/20 17:11 Morphine 4 Mg/Ml Sdv 1 Ml IVP 2 mg Q4H PRN Administration SEVERE PAIN Non-Formulary Medi cation 1 tab 06/21/20 05:00 06/21/20 05:02 Pnv Cmb#95-Mirian us Fumarate-Fa [Pr enatal Multivitami ns] PO Not Given DAILY@05 [facility] Olanzapine 7.5 mg 06/20/20 21:00 06/20/20 20:43 Olanzapine 5 Mg Tablet PO 7.5 mg BEDTIME CARLY Administration Oxycodone/Acetamin ophen 1 tab 06/20/20 22:57 06/21/20 14:29 Oxycodone-Apap 1 0-325 Mg Tablet PO 1 tab Q4H PRN Administration MODERATE PAIN Thiamine Mononitra te 100 mg 06/21/20 05:00 06/21/20 04:59 Thiamine 100 Mg Tablet PO 100 mg DAILY@05 CARLY Administration Vitals/I&O/Wt Last Vital Signs Temp 97.8 F 06/21/20 11:55 Pulse 77 06/21/20 14:00 Resp 20 H 06/21/20 14:29 BP 142/98 06/21/20 14:00 Pulse Ox 95 06/21/20 13:45 06/20/20 06/21/20 06/21/20 22:59 06:59 14:59 Intake Total 900 / 900 1591.25 / 2491.25 880 / 880 Output Total 3075 / 3075 375 / 375 Balance 900 / 900 -1483.75 / -583.75 505 / 505 Weight last 48 hrs Weight 135.987 kg Weight 117.934 kg Physical Exam Narrative: EXAM NARRATIVE: The patient is awake alert oriented. No acute distress. Mood and affect are appropriate. Responses are adequate. Distant crackles have resolved. Skin is warm and dry. Moist mucous membranes. Eyes PERRL, extraocular muscles are intact Neck supple. No JVD Lungs bilateral crackles more pronounced on the right side, significantly improved. No respiratory distress. No accessory muscle use. Heart S1, S2, regular Abdomen is obese, soft, nontender, bowel sounds are present Extremities trace pedal edema. No cyanosis or calf tenderness bilaterally. Urinary Catheter Management^: Santos: Cath Placed During This Visit: yes Reason for Continuing Indwelling Catheter: Accurate Measurement of Urinary Output in Critically Ill Patients Urinary Catheter Date of Insertion: 06/20/20 Urinary Catheter Time of Insertion: 19:15 Data : 06/21/20 03:34 06/21/20 03:34 Micro: Microbiology 06/20/20 12:35 Blood Culture - Preliminary Blood NEGATIVE TO DATE 06/20/20 11:45 Blood Culture - Preliminary Blood NEGATIVE TO DATE A&P Additional A&P Information Acute hypoxic respiratory failure secondary to pneumonia. Right middle lobe infiltrate. Aspiration and healthcare acquired pneumonia is suspected. Speech eval is pending. Continue management in ICU.improved since yesterday. Supplemental oxygen. Continue incentive spirometry and flutter valve. Sepsis secondary to pneumonia. Will start on broad-spectrum antibiotics with c overage for anaerobes and MRSA due to his status. He is from group home. We will check his MRSA status. He is allergic to penicillins. Continue vancomycin per pharmacy dosing, Levaquin and aztreonam. We will start de-escalating antibiotics as we gather more data from the tests that we ordered including cultures. The patient will continue receiving respiratory treatments. Aspiration precautions. Bedbound status. Frequent repositioning, air bed, nursing protocols for pressure sore prevention. PT OT eval and treat. DVT prophylaxis. Lovenox. History of COPD. Currently no evidence of COPD acute exacerbation. Continue home medications. History of hypertension. We will hold his home blood pressure medications for now due to sepsis. History of GERD. We will continue his home medications. History of BPH. We will continue his home medications. We will also continue all his psychiatric medications. CODE STATUS. Full code. The plan of care was discussed with the patient. He request understanding and agreement. Discussed with multidisciplinary team. Attestations Medical Necessity Statement*: Patient requires IV antibiotics and ICU monitoring. Coding Level of Care Code Acute Do All Operator for Sudarshan Varela
[2020-06-21] MEDS: enoxaparin 40 mg/0.4 mL Syringe SUBCUT (15:08)
--- NOTE | 2020-06-21 15:14 | PC.OT ---
OT note: Pt on COVID rule out, will hold at this time.
--- NOTE | 2020-06-21 17:07 | PC.OT ---
OT note: Will await pending COVID test and try again as able. Pt is reported to be bed bound and from SNF at baseline.
[2020-06-21] MEDS: divalproex DR 500 mg Tablet PO (21:21)
[2020-06-21] MEDS: finasteride 5 mg Tablet PO (21:21)
[2020-06-21] MEDS: OLANZapine 5 mg TABLET 7.5 MG PO (21:21)
[2020-06-21] MEDS: HYDROcodone-acetaminophen 5-325 mg Tablet 1 TAB PO (22:39)
[2020-06-22] VITALS (19 sets, daily range): BP systolic 115–153; BP diastolic 58–73; PULSE 68–95; RESP 14–22; TEMP 36.4–36.8; O2SAT 92–98
[2020-06-22] MEDS: vancomycin 1,500 MG/300 ML PIGGYBACK 200 MG IV ×2 (01:29→08:02)
[2020-06-22] MEDS: oxyCODONE-APAP 10-325 mg Tablet 1 TAB PO ×2 (01:31→16:59)
[2020-06-22 05:08] LABS: Basophils # 0.1 10^3/uL (0.0-0.1); Basophils % 0.6 %; Eosinophils % 0.5 %; Hematocrit 35.4 % (42.0-52.0); Lymphocytes # 1.1 10^3/uL (0.8-4.8); Lymphocytes % 12.4 %; Mean Corpuscular HGB Conc 31.1 g/dL (30.0-36.0); Mean Corpuscular Hemoglobin 31.5 pg (28.0-34.0); Mean Corpuscular Volume 101.4 fL (80-94); Mean Platelet Volume 12.2 fL (7.4-10.4); Monocytes % 11.4 %; Neutrophils # 6.64 10^3/uL (1.8-7.7); Neutrophils % 74.9 %; Nucleated Red Blood Cells % 0 %; Platelet Count 184 10^3/cmm (130-400); Red Blood Count 3.49 10^6/uL (4.1-5.3); Red Cell Distribution Width 12.4 % (12.1-15.1); White Blood Count 8.9 10^3/uL (4.0-10.0)
[2020-06-22 05:38] LABS: Alanine Aminotransferase 43 U/L (0-41); Albumin Level 3.2 g/dL (3.5-5.2); Alkaline Phosphatase 70 IU/L (40-130); Anion Gap 11.9 (5-19); Aspartate Amino Transferase 27 U/L (0-40); Blood Urea Nitrogen 10 mg/dL (8-23); C Reactive Protein 135.1 mg/L (0.0-4.9); Calcium 8.4 mg/dL (8.5-10.5); Carbon Dioxide 30 mmol/L (22-29); Chloride 102 mmol/L (98-107); Globulin 2.9 g/dL (1.3-4.6); Glomerular Filtration Rate 213.3 mL/min (90-130); Glucose 88 mg/dL (65-115); Magnesium 1.8 mg/dL (1.7-2.3); Osmolality Calculated 288 mOsm/kg (285-295); Potassium 3.9 mmol/L (3.5-5.1); Sodium 140 mmol/L (136-145); Total Bilirubin 0.3 mg/dL (0.15-1.2); Total Protein 6.1 g/dL (6.6-8.7)
[2020-06-22] MEDS: aztreonam 2,000 MG in sodium chloride 0.9% (plus) 100 ML 200 MG IV ×3 (05:38→20:56)
[2020-06-22] MEDS: doxazosin 4 mg Tablet 8 MG PO (05:41)
[2020-06-22] MEDS: levothyroxine 75 mcg Tablet 150 MCG PO (05:41)
[2020-06-22] MEDS: buPROPion XL (24 HR) 300 mg Tablet PO (05:41)
[2020-06-22] MEDS: escitalopram 10 mg Tablet PO (05:42)
[2020-06-22] MEDS: aspirin 81 mg Chew Tablet PO (05:42)
[2020-06-22] MEDS: gabapentin 300 mg Capsule PO ×3 (05:42→18:23)
[2020-06-22] MEDS: thiamine 100 mg Tablet PO (05:42)
[2020-06-22] MEDS: baclofen 10 mg Tablet PO ×3 (05:43→18:23)
[2020-06-22] MEDS: HYDROcodone-acetaminophen 5-325 mg Tablet 1 TAB PO ×2 (05:44→12:44)
[2020-06-22 07:49] LABS: Coronavirus Test Green County Not Detected
[2020-06-22] MEDS: miconazole 2% topical cream 28 gm TOPICAL ×2 (08:02→20:56)
[2020-06-22] MEDS: CLONazepam 0.5 mg Tablet PO ×3 (08:02→20:56)
[2020-06-22] MEDS: sodium chloride 0.9% 1,000 ML 75 ML IV (08:33)
--- NOTE | 2020-06-22 08:41 | PC.OT ---
OT NOTE: OT EVALUATION ORDERS RECEIVED. PER NURSE AT SNF: BASELINE, PATIENT IS BEDBOUND AND CAN WASH HIS FACE, COMB HIS HAIR. HE WAS ABLE TO DEMONSTRATE THIS TODAY. ALSO, PER NURSE AT SNF, PATIENT HAS BEEN OFFERED THERAPY ON MULTIPLE OCCASIONS AND DOES NOT PARTICIPATE. NO FURTHER SKILLED OT REQUIRED AT THIS TIME.
--- NOTE | 2020-06-22 10:40 | P.PN_ITS ---
Subjective Subjective: Interval history: Significant changes or events. The patient reports feeling better. Less shortness of breath. Cough is better. No chills. No nausea or vomiting. Medications: Reviewed: Yes Medication Review Details: Generic Name Dose Route Start Last Admin Trade Name Freq PRN Reason Stop Dose Admin Hydrocodone Bitart /Acetaminophen 1 tab 06/20/20 18:18 06/20/20 18:34 Hydrocodone-Acet aminophen 5-325 Mg Tablet PO 1 tab Q6H PRN Administration MODERATE PAIN Albuterol Sulfate 2 puff 06/21/20 01:04 06/21/20 01:18 Albuterol 8 Gm M di INHALATION 2 puff Q4H.RESPIRATORY P RN Administration SHORTNESS OF SAMANTHA TH Aspirin 81 mg 06/21/20 05:00 06/21/20 04:59 Aspirin 81 Mg Ch ew Tablet PO 81 mg DAILY@05 CARLY Administration Baclofen 10 mg 06/20/20 18:00 06/21/20 12:07 Baclofen 10 Mg T ablet PO 10 mg TID@06,13,18 CARLY Administration Bupropion HCl 300 mg 06/21/20 05:00 06/21/20 04:59 Bupropion Xl (24 Hr) 300 Mg Tablet PO 300 mg DAILY@05 CARLY Administration Clonazepam 0.5 mg 06/20/20 21:00 06/21/20 08:59 Clonazepam 0.5 M g Tablet PO 0.5 mg TID CARLY Administration Divalproex Sodium 500 mg 06/20/20 21:00 06/20/20 20:[address] 50 0 Mg Tablet PO 500 mg BEDTIME CARLY Administration Doxazosin Mesylate 8 mg 06/21/20 05:00 06/21/20 04:59 Doxazosin 4 Mg T ablet PO 8 mg DAILY@05 CARLY Administration Enoxaparin Sodium 40 mg 06/20/20 16:00 06/20/20 16:28 Enoxaparin 40 Mg /0.4 Ml Syringe SUBCUT 40 mg Q24H CARLY Administration Escitalopram Oxala te 10 mg 06/21/20 05:00 06/21/20 05:00 Escitalopram 10 Mg Tablet PO 10 mg DAILY@05 CARLY Administration Finasteride 5 mg 06/20/20 21:00 06/20/20 20:43 Finasteride 5 Mg Tablet PO 5 mg BEDTIME CARLY Administration Gabapentin 300 mg 06/20/20 18:00 06/21/20 12:07 Gabapentin 300 M g Capsule PO 300 mg TID@,18 CARLY Administration Aztreonam 2,000 mg / Sodium 100 mls @ 200 mls /hr 06/20/20 21:30 06/21/20 13:12 Chloride IV Infused Q8H CARLY Infusion Protocol Levofloxacin/Dextr ose 750 mg in 150 mls @ 100 mls/hr 06/21/20 14:00 06/21/20 13:46 Levaquin-D5w IV 100 mls/hr Q24H CARLY Administration Protocol Vancomycin/PEG/NAD A/Lysine/Water 1,500 mg in 300 m ls @ 200 mls/hr 06/20/20 16:30 06/21/20 11:00 Vancocin IV Infused Q8H CARLY Infusion Sodium Chloride 1,000 mls @ 75 ml s/hr 06/20/20 15:45 06/21/20 05:00 Sodium Chloride 0.9% IV 75 mls/hr .[id number] CARLY Administration Levothyroxine Sodi um 150 mcg 06/21/20 05:00 06/21/20 04:59 Levothyroxine 75 Mcg Tablet PO 150 mcg DAILY@05 CARLY Administration Miconazole Nitrate 0 applic 06/20/20 18:00 06/21/20 09:24 Miconazole 2% To pical Cream 28 Gm TOPICAL 1 applic BID CARLY Administration Morphine Sulfate 2 mg 06/20/20 15:48 06/20/20 17:11 Morphine 4 Mg/Ml Sdv 1 Ml IVP 2 mg Q4H PRN Administration SEVERE PAIN Non-Formulary Medi cation 1 tab 06/21/20 05:00 06/21/20 05:02 Pnv Cmb#[id number] us Fumarate-Fa [Pr enatal Multivitami ns] PO Not Given DAILY@05 [facility] Olanzapine 7.5 mg 06/20/20 21:00 06/20/20 20:43 Olanzapine 5 Mg Tablet PO 7.5 mg BEDTIME CARLY Administration Oxycodone/Acetamin ophen 1 tab 06/20/20 22:57 06/21/20 14:29 Oxycodone-Apap 1 0-325 Mg Tablet PO 1 tab Q4H PRN Administration MODERATE PAIN Thiamine Mononitra te 100 mg 06/21/20 05:00 06/21/20 04:59 Thiamine 100 Mg Tablet PO 100 mg DAILY@05 CARLY Administration Vitals/I&O/Wt Last Vital Signs Temp 98.3 F 06/22/20 08:00 Pulse 74 06/22/20 10:00 Resp 18 06/22/20 10:00 BP 124/58 06/22/20 10:00 Pulse Ox 94 06/22/20 10:00 06/21/20 06/22/20 06/22/20 22:59 06:59 14:59 Intake Total 1790 / 2670 300 / 2970 1453.333 / 1453.333 Output Total 1100 / 1475 2000 / 3475 300 / 300 Balance 690 / 1195 -1700 / -505 1153.333 / 1153.333 Weight last 48 hrs Weight 137.892 kg Weight 135.987 kg Weight 117.934 kg Physical Exam Narrative: EXAM NARRATIVE: The patient is awake alert oriented. No acute distress. Mood and affect are appropriate. Responses are adequate. Distant crackles have resolved. Skin is warm and dry. Moist mucous membranes. Eyes PERRL, extraocular muscles are intact Neck supple. No JVD Lungs bilateral crackles more pronounced on the right side, significantly improved. No respiratory distress. No accessory muscle use. Heart S1, S2, regular Abdomen is obese, soft, nontender, bowel sounds are present Extremities trace pedal edema. No cyanosis or calf tenderness bilaterally. Urinary Catheter Management^: Santos: Cath Placed During This Visit: yes Reason for Continuing Indwelling Catheter: Accurate Measurement of Urinary Output in Critically Ill Patients Urinary Catheter Date of Insertion: 06/20/20 Urinary Catheter Time of Insertion: 19:15 Data : 06/22/20 04:19 06/22/20 04:19 Micro: Microbiology 06/20/20 19:20 Gram Stain - Final Sputum - Expectorated Sputum Sputum Culture - Preliminary 06/20/20 05:27 MRSA Culture - Final Nose 06/20/20 12:35 Blood Culture - Preliminary Blood NEGATIVE TO DATE 06/20/20 11:45 Blood Culture - Preliminary Blood NEGATIVE TO DATE A&P Additional A&P Information Acute hypoxic respiratory failure secondary to pneumonia. Stabilized. Supplemental oxygen as needed. Continue incentive spirometry and flutter valve. Sepsis secondary to pneumonia. Right middle lobe infiltrate. [facility] is from [facility]. Healthcare acquired pathogens were suspected. However MRSA test is negative. Aspiration pneumonia is possible as well. He is allergic to penicillins. We will stop vancomycin today. We will continue de-escalating antibiotics if he continues improving. Continue Levaquin and aztreonam for now. The patient will continue receiving respiratory treatments. Aspiration precautions per speech therapy recommendations. Bedbound status. Frequent repositioning, air bed, nursing protocols for p ressure sore prevention. PT OT eval and treat. DVT prophylaxis. Lovenox. History of COPD. Currently no evidence of COPD acute exacerbation. Continue home medications. History of hypertension. We will hold his home blood pressure medications for now due to sepsis. History of GERD. We will continue his home medications. History of BPH. We will continue his home medications. We will also continue all his psychiatric medications. CODE STATUS. Full code. The plan of care was discussed with the patient. He request understanding and agreement. Discussed with multidisciplinary team. Attestations Medical Necessity Statement*: Still requires IV antibiotics. Probably we can discharge him in a day or 2. Coding Level of Care Code Acute [employer] for Sudarshan Varela
[2020-06-22] MEDS: levofloxacin-dextrose 5 % 750 MG/150 ML PREMIX 100 MG IV (14:45)
[2020-06-22] MEDS: morphine 4 mg/mL SDV 1 mL 2 MG IVP (14:52)
[2020-06-22] MEDS: enoxaparin 40 mg/0.4 mL Syringe SUBCUT (16:56)
[2020-06-22] MEDS: finasteride 5 mg Tablet PO (20:56)
[2020-06-22] MEDS: divalproex DR 500 mg Tablet PO (20:56)
[2020-06-22] MEDS: OLANZapine 5 mg TABLET 7.5 MG PO (20:56)
[2020-06-23] VITALS (14 sets, daily range): BP systolic 115–145; BP diastolic 68–80; PULSE 63–132; RESP 16–24; TEMP 36.3–36.8; O2SAT 88–98
[2020-06-23] MEDS: HYDROcodone-acetaminophen 5-325 mg Tablet 1 TAB PO (01:43)
[2020-06-23] MEDS: doxazosin 4 mg Tablet 8 MG PO (05:33)
[2020-06-23] MEDS: escitalopram 10 mg Tablet PO (05:34)
[2020-06-23] MEDS: buPROPion XL (24 HR) 300 mg Tablet PO (05:34)
[2020-06-23] MEDS: thiamine 100 mg Tablet PO (05:34)
[2020-06-23] MEDS: aspirin 81 mg Chew Tablet PO (05:34)
[2020-06-23] MEDS: levothyroxine 75 mcg Tablet 150 MCG PO (05:34)
[2020-06-23] MEDS: baclofen 10 mg Tablet PO ×3 (05:34→17:39)
[2020-06-23] MEDS: aztreonam 2,000 MG in sodium chloride 0.9% (plus) 100 ML 200 MG IV (05:34)
[2020-06-23] MEDS: gabapentin 300 mg Capsule PO ×3 (05:34→17:39)
[2020-06-23] MEDS: oxyCODONE-APAP 10-325 mg Tablet 1 TAB PO ×3 (05:41→17:39)
[2020-06-23] MEDS: CLONazepam 0.5 mg Tablet PO ×2 (08:34→15:53)
[2020-06-23] MEDS: miconazole 2% topical cream 28 gm TOPICAL ×2 (09:14→17:40)
[2020-06-23] MEDS: metroNIDAZOLE 500 MG Tablet PO ×2 (09:14→15:53)
--- NOTE | 2020-06-23 10:13 | PC.SOCIAL ---
IMM Update Pg.2 of IMM updated and reviewed with guardian over the phone. Copy provided to patient at bedside.
--- NOTE | 2020-06-23 14:25 | P.DS_ITS ---
Discharge Providers Date of Admission: 06/20/20 14:41 Date of Discharge: June 23, 2020 Attending Provider at Admission: Umesh Obrien Attending Provider at Discharge: Umesh Obrien Primary Care Provider: Deloris Echavarria DO Reason for Visit Reason for Visit: LOW O2, INCREASED CONGESTION Hospital Course Hospital Course Acute hypoxic respiratory failure secondary to pneumonia. Stabilized. Supplemental oxygen as needed at his baseline, to to 4 L/min. Continue incentive spirometry and flutter valve. The patient is ready for discharge. He is eager to return back to [facility] facility. I offered him to stay another day for monitoring but he asked me to do the transfer today. Sepsis secondary to pneumonia. Right middle lobe infiltrate. jail resident. MRSA test is negative. Aspiration pneumonia is suspected. He is allergic to penicillins. Antibiotics are de-escalated to Levaquin and metronidazole for additional 5 days. The patient will continue receiving respiratory treatments. Aspiration precautions per speech therapy recommendations. Bedbound status. Frequent repositioning, air bed, nursing protocols for pressure sore prevention. PT OT eval and treat. DVT prophylaxis. Received Lovenox. History of COPD. Currently no evidence of COPD acute exacerbation. Continue home medications. History of hypertension. Stable. Continue home medications. History of GERD. We will continue his home medications. History of BPH. We will continue his home medications. We will also continue all his psychiatric medications. CODE STATUS. Full code. The plan of care was discussed with the patient. He request understanding and agreement. He was instructed to come back to emergency room if he develops any new or similar symptoms. Follow-up CBC and chest x-ray is recommended. Physical Exam Narrative: EXAM NARRATIVE: The patient is awake alert oriented. No acute distress. Mood and affect are appropriate. Responses are adequate. Distant crackles have resolved. Skin is warm and dry. Moist mucous membranes. Eyes PERRL, extraocular muscles are intact Neck supple. No JVD Lungs much improved crackles. No respiratory distress. No accessory muscle use. Heart S1, S2, regular Abdomen is obese, soft, nontender, bowel sounds are present Extremities trace pedal edema. No cyanosis or calf tenderness bilaterally. Urinary Catheter Management^: Santos: Cath Placed During This Visit: yes Reason for Continuing Indwelling Catheter: Accurate Measurement of Urinary Output in Critically Ill Patients Urinary Catheter Date of Insertion: 03/23/21 Urinary Catheter Time of Insertion: 19:15 Discharge Data Data Completed and Pending: Completed Studies During Hospitalization Category Date Time Status XR chest 1V eddie ble [id number] Stat Exams 06/20/20 11:29 Completed Pending at discharge Category Date Time Status Blood Culture Sta t Lab 06/20/20 12:35 Results Complete Blood Co unt w/Auto AM LABS Lab 06/24/20 04:00 Ordered Magnesium AM LABS Lab 06/24/20 04:00 Ordered Procalcitonin AM LABS Lab 06/24/20 04:00 Ordered Renal Function Pa rubia AM LABS Lab 06/24/20 04:00 Ordered Vitals: Last Vital Signs Temp 97.8 F 06/23/20 12:00 Pulse 132 H 06/23/20 12:00 Resp 16 06/23/20 12:07 BP 124/73 06/23/20 12:00 Pulse Ox 88 L 06/23/20 12:00 Discharge Plan Discharge Patient Disposition: Xfer SNF Condition: Stable Prescriptions: New metronidazole 500 mg Tablet 500 mg PO TID Qty: 14 RF: 0 levofloxacin 750 mg Tablet 750 mg PO DAILY@0600 Qty: 5 RF: 0 Continued acetaminophen 325 mg Tablet 650 mg PO Q4H PRN (Reason: Pain) RF: 0 albuterol sulfate 2.5 mg /3 mL (0.083 %) Solution For Nebulization 2.5 mg INHALATION Q4H PRN (Reason: Shortness Of Breath) RF: 0 Jose Antifungal 2 % Cream See Rx Instructions .ROUTE .COMPLEX RF: 0 clonazepam 0.5 mg Tablet 0.5 mg PO TID RF: 0 loperamide 2 mg Tablet 4 mg PO Q3H MDD 8 tabs PRN (Reason: Diarrhea) RF: 0 divalproex 500 mg Tablet,Delayed Release (Dr/Ec) 500 mg PO BEDTIME RF: 0 Percocet 7.5-325 mg Tablet 1 tab PO Q4H RF: 0 Eucerin Cream See Rx Instructions .ROUTE .COMPLEX RF: 0 Calmoseptine 0.44-20.6 % Ointment See Rx Instructions .ROUTE .COMPLEX RF: 0 Biofreeze (menthol) 4 % Gel 1 applic TOPICAL BID PRN (Reason: Muscle Spasm) RF: 0 amlodipine 5 mg tablet 5 mg PO DAILY@05 RF: 0 baclofen 10 mg tablet 10 mg PO TID@06,13,18 RF: 0 levothyroxine 150 mcg tablet 150 mcg PO DAILY@05 RF: 0 doxazosin 4 mg tablet 8 mg PO DAILY@05 RF: 0 aspirin 81 mg tablet,chewable 81 mg PO DAILY@05 RF: 0 gabapentin 100 mg capsule 300 mg PO TID@,,18 RF: 0 escitalopram oxalate 10 mg tablet 10 mg PO DAILY@05 RF: 0 bupropion HCl 300 mg tablet extended release 24 hr 300 mg PO DAILY@05 RF: 0 Senna-S 8.6-50 mg Tablet 1 tab-cap PO DAILY PRN (Reason: Constipation) RF: 0 olanzapine 7.5 mg Tablet 7.5 mg PO BEDTIME RF: 0 Multivitamins 28 mg iron- 800 mcg Tablet 1 tab PO DAILY@05 RF: 0 Vitamin B-1 (mononitrate) 100 mg tablet 100 mg PO DAILY@05 RF: 0 finasteride 5 mg Tablet 5 mg PO BEDTIME Qty: 30 RF: 0 Discontinued doxycycline hyclate 100 mg Capsule 100 mg PO BID RF: 0 guaifenesin 600 mg Tablet Extended Release 12hr 600 mg PO BID PRN (Reason: Congestion) RF: 0 benzonatate [Tessalon Perles] 100 mg Capsule 100 mg PO TID PRN (Reason: Cough) RF: 0 Discharge Orders: Discharge Order (Routine); Ordered 06/23/20 Ordered By: Umesh Obrien Other Ambulatory Orders: Complete Blood Count w/Auto (Routine) Timeframe: 1 Week Location: Determined by Patient Ordered By: Umesh Obrien XR chest 2V* [id number] (Routine) Timeframe: 3 Weeks Facility: [facility] - Location: Radiology [facility] Ordered By: Umesh Obrien Discharge Diet: As Directed Discharge Activity: Resume usual activity Patient Instructions: Aspiration, Metronidazole (By mouth), Levofloxacin (By mouth), Aspiration Pneumonia (DC) Activity Restrictions/Additional Instructions: Please come back to emergency room if you develop any worsening shortness of breath or cough, wheezes, fever or chills, nausea or vomiting, signs of aspiration, diarrhea or any other new symptoms. Please maintain aspiration pr ecautions. Discharge Attestations Time Spent in Discharge Care*: less than 30 min Status at Discharge: Cognitive status at discharge: cognitively intact , Behavioral status at discharge: cooperative , Quality Metrics Clinical Quality Measures During this hospital stay, did patient experience: None Coding Level of Care Code Acute Chg FW DC note
[2020-06-23] MEDS: levoFLOXacin 750 mg Tablet PO (14:37)
--- NOTE | 2020-06-23 14:48 | PC.NURSE ---
Report given to crystal, at [facility], denies further questions or concerns.
[2020-06-23] MEDS: enoxaparin 40 mg/0.4 mL Syringe SUBCUT (15:53)
[2020-06-23 17:00] LABS: Glucose Point of Care 88 mg/dL (70-110)
--- NOTE | 2020-06-23 18:53 | PC.NURSE ---
transportation here to [employer] [facility] patient via stretcher, no distress noted, belongings sent with patient.
== END 2020-06-23 18:58 | disposition skilled nursing facility (03) | DRG 871 ==
LOC: ER 11:27 → ICU 14:49 → MEDSURG 06-21 18:02 → ICU 06-21 18:17 → MEDSURG 06-22 12:05
PROVIDERS: Admitting Provider Internal Medicine; Emergency Provider Family Medicine; PCP Family Medicine; Visit Provider Internal Medicine
DX: A41.9 Sepsis, unspecified organism (principal); J96.01 Acute respiratory failure with hypoxia; J69.0 Pneumonitis due to inhalation of food and vomit; E87.1 Hypo-osmolality and hyponatremia; Z74.01 Bed confinement status; G83.9 Paralytic syndrome, unspecified; J44.9 Chronic obstructive pulmonary disease, unspecified; I10 Essential (primary) hypertension; K21.9 Gastro-esophageal reflux disease without esophagitis; E66.01 Morbid (severe) obesity due to excess calories; Z68.37 Body mass index [BMI] 37.0-37.9, adult; N40.0 Benign prostatic hyperplasia without lower urinary tract symptoms; E03.9 Hypothyroidism, unspecified; Z86.14 Personal history of Methicillin resistant Staphylococcus aureus infection; G62.9 Polyneuropathy, unspecified; F17.210 Nicotine dependence, cigarettes, uncomplicated; F10.21 Alcohol dependence, in remission; I95.9 Hypotension, unspecified; Z79.51 Long term (current) use of inhaled steroids; Z79.891 Long term (current) use of opiate analgesic
CPT/HCPCS: 36415; 36416; 36600; 51702; 71045; 80051; 80053; 80202; 81003; 82330; 82550; 82805; 82962; 83735; 84145; 85025; 85378; 86140; 87040; 87070; 87205; 87635; 87641; 92610; 94640; 94664; 96372; 99285; J1650; J1956; J2270; J3370; J3490; J3535; J7030; J7611